=== PATIENT | male | born 1940 | race Caucasian/White ===

== ENCOUNTER 2016-03-15 08:00 | Outpatient (CLI) | payer MEDICARE | END 2016-03-15 08:01 | disposition home or self-care (01) | DX: I48.91 Unspecified atrial fibrillation (principal) ==

== ENCOUNTER 2016-03-29 08:00 | Outpatient (CLI) | payer MEDICARE | END 2016-03-29 08:01 | disposition home or self-care (01) | DX: I48.91 Unspecified atrial fibrillation (principal) ==

== ENCOUNTER 2016-05-01 13:02 | Outpatient (CLI) | payer MEDICARE | END 2016-05-01 13:03 | disposition home or self-care (01) | DX: I48.91 Unspecified atrial fibrillation (principal) ==

== ENCOUNTER 2016-05-07 | Outpatient (CLI) | payer MEDICARE | END 2016-05-07 10:30 | disposition home or self-care (01) | DX: I48.91 Unspecified atrial fibrillation (principal) ==

== ENCOUNTER 2016-05-21 19:21 | Emergency (ER) | payer MEDICARE ==
[2016-05-21] MEDS ORDERED: OXYMETAZOLINE NASAL SPRAY NAS STA (20:14)
[2016-05-21] MEDS ORDERED: ALBUTEROL NEB 2.5 MG/3 ML INH STA (20:14)
[2016-05-21] MEDS ORDERED: guaiFENesin/CODEINE 5 ML UDC PO STA (20:14)
[2016-05-21] MEDS ORDERED: guaiFENesin/CODEINE 5 ML UDC ONE (20:16)
[2016-05-21] MEDS ORDERED: OXYMETAZOLINE NASAL SPRAY NAS ONE (20:16)
[2016-05-21] MEDS ORDERED: ALBUTEROL NEB 2.5 MG/3 ML INH ONE (20:25)
[2016-05-21] MEDS ORDERED: levoFLOXacin 250 MG TABLET PO STA (20:44)
[2016-05-21] MEDS ORDERED: levoFLOXacin 250 MG TABLET PO ONE (20:45)
== END 2016-05-21 21:09 | disposition home or self-care (01) ==
DX: J18.9 Pneumonia, unspecified organism (principal); I48.91 Unspecified atrial fibrillation; Z79.01 Long term (current) use of anticoagulants; I10 Essential (primary) hypertension; E78.00 Pure hypercholesterolemia, unspecified; Z86.73 Personal history of transient ischemic attack (TIA), and cerebral infarction without residual deficits; Z85.46 Personal history of malignant neoplasm of prostate; K21.9 Gastro-esophageal reflux disease without esophagitis
CPT/HCPCS: 36415; 71020; 85025; 85610; 94640; 99283; 99284; A9270; J7613

== ENCOUNTER 2016-05-28 08:00 | Outpatient (CLI) | payer MEDICARE | END 2016-05-28 08:01 | disposition home or self-care (01) | DX: I48.91 Unspecified atrial fibrillation (principal) ==

== ENCOUNTER 2016-07-02 11:46 | Outpatient (CLI) | payer MEDICARE | END 2016-07-02 11:47 | DX: I48.91 Unspecified atrial fibrillation (principal) ==

== ENCOUNTER 2016-07-08 13:27 | Outpatient (CLI) | payer MEDICARE | END 2016-07-08 23:59 | disposition home or self-care (01) | DX: I48.91 Unspecified atrial fibrillation (principal) ==

== ENCOUNTER 2016-07-22 08:00 | Outpatient (CLI) | payer MEDICARE | END 2016-07-22 08:01 | disposition home or self-care (01) | LOC: LAB.N 08:00 | PROVIDERS: ATTEND Nurse Practitioner Gerontology | DX: I48.91 Unspecified atrial fibrillation (principal) | CPT/HCPCS: 85610 ==

== ENCOUNTER 2016-07-30 08:16 | Outpatient (CLI) | payer MEDICARE | END 2016-07-30 08:17 | disposition home or self-care (01) | LOC: LAB.N 08:16 | PROVIDERS: ATTEND Nurse Practitioner Gerontology | DX: I48.91 Unspecified atrial fibrillation (principal) | CPT/HCPCS: 85610 ==

== ENCOUNTER 2016-08-01 16:25 | Outpatient (CLI) | payer MEDICARE ==
--- NOTE | 2016-08-03 13:43 | XRAY Report ---
EXAM: CHEST RADIOGRAPHY EXAM DATE: 08/01/2016 04:39 PM. CLINICAL HISTORY: Chronic cough. COMPARISON: 05/21/2016. TECHNIQUE: 2 views. FINDINGS: Lungs/Pleura: Mild improved aeration of the right middle lobe. Persistent right basilar opacity alvina tible with infiltrate. Mediastinum: Heart and mediastinal contours are unremarkable. Other: None. IMPRESSION: Improved aeration of right middle lobe, with persistent right basilar infiltrate. [facility] Referring Provider Line: [phone] SITE ID: [id number]
== END 2016-08-01 16:26 | disposition home or self-care (01) ==
LOC: DI.N 16:25
PROVIDERS: ATTEND Nurse Practitioner Gerontology
DX: R91.8 Other nonspecific abnormal finding of lung field (principal)
CPT/HCPCS: 71020

== ENCOUNTER 2016-08-19 14:45 | Outpatient (CLI) | payer MEDICARE | END 2016-08-19 15:00 | disposition home or self-care (01) | LOC: RT.N 14:45 | PROVIDERS: ATTEND Nurse Practitioner Gerontology | DX: I50.9 Heart failure, unspecified (principal) | CPT/HCPCS: 93005 ==

== ENCOUNTER 2016-08-24 07:28 | Inpatient (IN) | payer MEDICARE ==
[2016-08-24 08:10] LABS: BASOPHILS # (AUTO) 0.1 10^3/uL (0.0-0.1); BASOPHILS % (AUTO) 1.4 %; EOSINOPHILS # (AUTO) 0.1 10^3/uL (0.0-0.7); EOSINOPHILS % (AUTO) 1.1 %; HCT - HEMATOCRIT 40.9 % (42.0-52.0); HGB - HEMOGLOBIN 13.5 g/dL (14.0-18.0); LYMPHOCYTES # (AUTO) 0.8 10^3/uL (1.5-3.5); LYMPHOCYTES % (AUTO) 12.8 %; MEAN CORPUSCULAR HEMOGLOBIN 28.8 pg (27.0-31.0); MEAN CORPUSCULAR VOLUME 87.3 fL (80.0-94.0); MEAN PLATELET VOLUME 10.2 fL (7.4-11.4); MONOCYTES # (AUTO) 0.4 10^3/uL (0.0-1.0); MONOCYTES % (AUTO) 7.4 %; NEUTROPHILS # (AUTO) 4.5 10^3/uL (1.5-6.6); NEUTROPHILS % (AUTO) 77.3 %; RED BLOOD COUNT 4.69 10^6/uL (4.70-6.10); RED CELL DISTRIBUTION WIDTH 14.1 % (12.0-15.0); UNCORRECTED WHITE BLOOD COUNT 5.9 x10^3/uL; WHITE BLOOD COUNT 5.9 x10^3/uL (4.8-10.8)
[2016-08-24 08:13] LABS: CALCIUM 8.8 mg/dL (8.5-10.3); CREATININE 1.1 mg/dL (0.6-1.2); POTASSIUM 3.7 mmol/L (3.5-5.0)
[2016-08-24 08:14] LABS: INR 2.1 (0.8-1.2); PT - PROTHROMBIN TIME 23.3 secs (9.9-12.6)
--- NOTE | 2016-08-24 08:19 | XRAY Preliminary Report ---
Exam: XR Chest 1 View IMPRESSION: Interval worsening cardiomegaly and worsening congestive heart failure. [facility] SITE ID: [id number]
--- NOTE | 2016-08-24 08:21 | XRAY Report ---
EXAM: CHEST RADIOGRAPHY EXAM DATE: 08/24/2016 08:05 AM. CLINICAL HISTORY: SOB COMPARISON: 08/01/2016. TECHNIQUE: 1 view. FINDINGS: There is mild to moderate cardiomegaly with bilateral diffuse interstitial thickening, perihilar opac ity and bibasilar patchy pulmonary opacities, greater in the right lower lobe; these findings are mod erately increased since exam. Bilateral minimal to small pleural effusions, greater in the right ches t also noted. There is no pneumothorax. IMPRESSION: Interval worsening cardiomegaly and worsening congestive heart failure. [facility] Referring Provider Line: [phone] SITE ID: [id number]
[2016-08-24 08:30] LABS: PLATELET MORPHOLOGY RARE GIANT PLATELETS (NORMAL)
--- NOTE | 2016-08-24 08:30 | ED Physician Documentation ---
History of Present Illness - Stated complaint Stated Complaint: SOA/CONGESTION - Chief complaint Chief Complaint: Resp - Additonal information Additional information: hx from pt 75 male hx a fib had pna in May he has never recovered he has had soa rodríguez with exertion and sometimes cp with exertion relieved by rest as well stats he has insomnia but when further questioned he has trouble sleeping 2/2 feeling soa when supine very weak recently still coughing subj fevers no leg swelling last INR 1.7 no bloody black BM saw PMD and was referred to cardiology but does not have an appt scheduled yet - his network developer is a Tomy Womack Review of Systems Constitutional: reports: Fever, Fatigue. denies: Chills Ears: denies: Ear pain Throat: denies: Sore throat Cardiac: reports: Chest pain / pressure. denies: Palpitations Respiratory: reports: Dyspnea, Cough GI: denies: Abdominal Pain, Nausea, Vomiting, Diarrhea, Bloody / black stool Neurologic: reports: Generalized weakness Endocrine: reports: Easy bruising / bleeding Immunocompromised: denies: Immunocompromised PD PAST MEDICAL HISTORY - Past Medical History Past Medical History: Yes Cardiovascular: Hypertension, High cholesterol, Atrial flutter Neuro: CVA GI: GERD - Past Surgical History Past Surgical History: Yes HEENT: Tonsil/Adenoidectomy - Present Medications Home Medications: Ambulatory Orders Medication Instructions Recorded Confirmed Atorvastatin Calcium 40 mg PO QPM 05/21/16 08/24/16 Carvedilol [Coreg] 6.25 mg BID 05/21/16 08/24/16 Omeprazole 20 mg PO QDAC 05/21/16 08/24/16 Warfarin [Coumadin] 5 mg PO SUTUWETHSA@1400 05/21/16 08/24/16 Albuterol Sulf [Ventolin Hfa 1 - 2 puffs INH Q4HR PRN 08/24/16 08/24/16 Inhaler] Warfarin [Coumadin] 2.5 mg PO MOFR@1400 08/24/16 08/24/16 - Allergies Allergies/Adverse Reactions: Allergies Allergy/AdvReac Type Severity Reaction Status Date / Time No Known Drug Allergies Allergy Verified 05/21/16 19:29 - Social History Does the pt smoke?: No Smoking Status: Never smoker Does the pt have substance abuse?: No - Immunizations Immunizations are current?: No - POLST Patient has POLST: No PD ED PE NORMAL - Vitals Vital signs reviewed: Yes - General General: Alert and oriented X 3 - HEENT HEENT: PERRL - Neck Neck: Supple, no meningeal sign - Cardiac Cardiac: RRR (monitor shows rate controlled afib) - Respiratory Respiratory: No respiratory distress, Other (basilar rales) - Abdomen Abdomen: Soft, Non tender - Derm Derm: Normal color - Extremities Extremities: No edema, No calf tenderness / cord - Neuro Neuro: Alert and oriented X 3 - Psych Psych: Normal mood Results - Vitals Vitals: Vital Signs - 24 hr 08/24/16 08/24/16 08/24/16 07:32 08:30 09:46 Temperature 35.1 C L Heart Rate 92 82 89 Respiratory 26 H 28 H 26 H Rate Blood Pressure 138/80 H 126/80 136/103 H O2 Saturation 96 96 94 Oxygen O2 Source Room air - EKG (time done) 0750 Rate: Rate (enter#) Rhythm: Atrial fibrillation Intervals: Wide QRS (IVCD probable partial LBBB) Compare to prior EKG: Unchanged from prior EKG (very similar to EKG 05/07/16) - Labs Labs: Laboratory Tests 08/24/16 08/24/16 08/24/16 07:50 07:50 07:50 WBC 5.9 RBC 4.69 L Hgb 13.5 L Hct 40.9 L MCV 87.3 MCH 28.8 MCHC 33.0 RDW 14.1 Plt Count 205 MPV 10.2 Neut # 4.5 Lymph # 0.8 L [place] # 0.4 Eos # 0.1 Baso # 0.1 Absolute Nucleated RBC 0.00 Nucleated RBCs 0.0 Manual Slide Review Indicated Platelet Morphology RARE GIANT PLATELETS PT INR Sodium 138 Potassium 3.7 Chloride 105 Carbon Dioxide 22 Anion Gap 11.0 BUN 31 H Creatinine 1.1 Estimated GFR (MDRD) 66 L Glucose 192 H Calcium 8.8 Troponin I < 0.04 B-Natriuretic Peptide Urine Color Urine Clarity Urine pH Ur Specific [place] Urine Protein Urine Glucose (UA) Urine Ketones Urine Occult Blood Urine Nitrite Urine Bilirubin Urine Urobilinogen Ur Leukocyte Esterase Urine RBC Urine WBC Ur Squamous Epith Cells Urine Bacteria Urine Casts Urine Mucus Ur Microscopic Review Urine Culture Comments 08/24/16 08/24/16 08/24/16 07:50 07:50 09:50 WBC RBC Hgb Hct MCV MCH MCHC RDW Plt Count MPV Neut # Lymph # [place] # Eos # Baso # Absolute Nucleated RBC Nucleated RBCs Manual Slide Review Platelet Morphology PT 23.3 H INR 2.1 H Sodium Potassium Chloride Carbon Dioxide Anion Gap BUN Creatinine Estimated GFR (MDRD) Glucose Calcium Troponin I B-Natriuretic Peptide 1026 H Urine Color YELLOW Urine Clarity HAZY Urine pH 6.0 Ur Specific [place] 1.025 Urine Protein 100 H Urine Glucose (UA) 100 H Urine Ketones NEGATIVE Urine Occult Blood NEGATIVE Urine Nitrite NEGATIVE Urine Bilirubin NEGATIVE Urine Urobilinogen 0.2 (NORMAL) Ur Leukocyte Esterase NEGATIVE Urine RBC 0-5 Urine WBC 0-3 Ur Squamous Epith Cells NONE SEEN Urine Bacteria None Seen Urine Casts 0-2 Cellular Casts Urine Mucus Few Strands Ur Microscopic Review INDICATED Urine Culture Comments NOT INDICATED - Rads (name of study) CXR Radiology: See rad report (worsening cardiomegaly and CHF) PD MEDICAL DECISION MAKING - ED course ED course: gradually worsening but now severe CHF - sats to low 80s at time - placed on o2 - will admit for diuresis, SHARLENE, echo also by hx some subacute anginal sx X several months - will need cardio eval stress test - perhaps [facility] hospitalist can coordinate with pts cardio to expedite Departure - Departure Disposition: 66 [facility] DC/Xfer Clinical Impression: Hypoxia Congestive heart failure Qualifiers: Congestive heart failure type: unspecified congestive heart failure type Congestive heart failure chronicity: acute Qualified Code(s): I50.9 - Heart failure, unspecified Condition: Fair Discharge Date/Time: 08/24/16 10:51
[2016-08-24] MEDS ORDERED: FUROSEMIDE 40 MG/4 ML VIAL IVP STA (09:52)
[2016-08-24] MEDS ORDERED: NITROGLYCERIN 2% PASTE TOP STA (09:52)
[2016-08-24] MEDS ORDERED: FUROSEMIDE 40 MG/4 ML VIAL ONE (10:08)
[2016-08-24] MEDS ORDERED: NITROGLYCERIN 2% PASTE TOP ONE (10:09)
[2016-08-24] MEDS ORDERED: ACETAMINOPHEN 325 MG TABLET PO PRN ×2 (10:12→11:01)
[2016-08-24] MEDS ORDERED: ONDANSETRON 4 MG/2 ML VIAL IVP PRN ×2 (10:12→11:01)
[2016-08-24] MEDS ORDERED: PROCHLORPERAZINE 10 MG/2 ML VIAL IVP PRN ×2 (10:12→11:01)
[2016-08-24] MEDS ORDERED: SODIUM CHLORIDE FLUSH 0.9% 10 ML SYRINGE IVP PRN ×2 (10:12→11:01)
[2016-08-24] MEDS ORDERED: ZOLPIDEM 5 MG TABLET PO PRN (10:12)
[2016-08-24] MEDS ORDERED: MORPHINE 2 MG/ML SYRINGE IVP PRN ×2 (10:12→11:01)
[2016-08-24] MEDS ORDERED: oxyCODONE 5 MG TABLET PO PRN ×2 (10:12→11:01)
[2016-08-24] MEDS ORDERED: CARVEDILOL 6.25 MG PO SCH (10:15)
[2016-08-24 10:21] LABS: BILIRUBIN,URINE NEGATIVE (NEGATIVE)
[2016-08-24 10:36] LABS: UA w/ MICROSCOPIC CHARGE YES
[2016-08-24 10:42] LABS: WBC,URINE 0-3 /HPF (0-3)
[2016-08-24 10:43] LABS: UR CULTURE IF IND NOT INDICATED
[2016-08-24] MEDS ORDERED: POTASSIUM CHLORIDE 20 MEQ TABLET PO SCH (11:00)
[2016-08-24] MEDS ORDERED: WARFARIN 5 MG TABLET PO SCH (11:00)
--- NOTE | 2016-08-24 11:10 | HISTORY & PHYSICAL EXAMINATION ---
Chief Complaint - Chief Complaint Chief Complaint: Shortness of Breath History of Present Illness - Admitted From Admitted From:: emergency department - History Obtained From Records Reviewed: yes History obtained from: patient Exam Limitations: none - History of Present Illness HPI Comment/Other: Patient is a 75-year-old gentleman with a past medical history significant for atrial fibrillation on Coumadin, prostate cancer with history of seed implant, hypertension and hyperlipidemia who presented to the emergency department with a chief complaint of shortness of air. The patient states that symptoms have been going on for the past several months. He states that originally in May of 2016 he was having shortness of air and cough at that time he was treated for a pneumonia he completed 2 courses of antibiotics and states that although he had some improvement he never was able to get back to his baseline. He states that since then he's been having increasingly worsening shortness of air. He states that over the past month his exercise tolerance has decreased rapidly. He states that now just going 10-15 feet and become short of air and fatigue and has to sit down and rest. He also states that he's had orthopnea and cannot sleep at night. The patient denies any increased lower extremity swelling. He does state that he's had decreased appetite, he often feels cold and he's been feeling dizzy. The patient denies having had any chest pain. He also denies having had any recent palpitations. On presentation to the emergency department the patient was afebrile but was quite tachypneic and in apparent respiratory distress. The patient was not hypoxic but was using accessory muscles of breathing. The patient's chest x-ray revealed cardiomegaly and worsening congestive heart failure. The patient's lab work revealed a normal troponin but an elevated BNP of 1026. Patient's creatinine was 1.1 and CBC was normal. Patient's INR was 2.1, his glucose was elevated at 196 and he did have proteins and glucose in his urine. The patient was admitted to the medical mcn[facility] for new onset CHF with decompensation. The patient was given a dose of IV Lasix in the emergency department and given a nitroglycerin patch. Review of Systems - Constitutional Constitutional: reports: Fatigue, Chills, Weakness, Poor appetite, Weight gain. denies: Fever, Malaise, Diaphoresis, Night sweats, Weight loss - Eyes Eyes: denies: Pain, Irritation, Amaurosis, Blurred vision, Spots in vision, Field loss, Vision loss, Dipolpia - Ears, Nose & Throat Ears, Nose & Throat: reports: Dentures. denies: Ear pain, Hearing loss, Hearing aids, Tinnitus, Vertigo, Nasal pain, Nasal discharge, Nosebleeds, Nasal obstruction, Nasal congestion, Sore throat, Hoarseness, Mouth lesions - Cardiovascular Cariovascular: reports: Irregular heart rate, Lightheadedness, Exertional dyspnea, Decr. exercise tolerance, Orthopnea. denies: Palpitations, Chest pain , Edema, Syncope - Respiratory Respiratory: reports: Cough, Sputum production, Orthopnea, SOB at rest, SOB with exertion. denies: Wheezing, Snoring, Hemoptysis, Pleuritic pain - Gastrointestinal Gastrointestinal: reports: Poor appetite. denies: Abdominal pain, Abdominal distention, Constipation, Diarrhea, Change in bowel habits, Black stools, Bloody stools, Nausea, Vomiting, Bile emesis, [place] blood emesis, Coffee grounds emesis, Bloating - Genitourinary Genitourinary: denies: Dysuria, Frequency, Urgency, Hematuria, Incontinence - Musculoskeletal Musculoskeletal: denies: Muscle pain, Back pain, Muscle aches, Stiffness, Limited range of motion, Muscle weakness - Integumentary Integumentary: denies: Rash, Pruritis, Lesions, Dryness - Neurological Neurological: reports: General weakness. denies: Focal weakness, Headache, Dizziness, Numbness, Abnormal gait, Seizures - Psychiatric Psychiatric: denies: Depression, Anxiety, Suicidal, Delusions - Endocrine Endocrine: denies: Polyuria, Polydypsia, Polyphagia, Intolerance to cold - Hematologic/Lymphatic Hematologic/Lymphatic: denies: Anemia, Bruising, Petechiae, Lymphadenopathy History - Past Medical History Cardiovascular: reports: Congestive heart failure, Hypertension, High cholesterol, Atrial fibrillation GI: reports: GERD : reports: Other (History of Prostate Cancer s/p seed implants) HEENT: reports: None Psych: reports: None Musculoskeletal: reports: None Derm: reports: None MRSA Hx?: No - Past Surgical History HEENT: reports: Tonsil/Adenoidectomy - Family & Social History Family History: Mother: (Dad was healthy), CAD, Father: , Sister: Alive and Well (2 kids), Other family: Alive and Well Living arrangement: At home Living Situation: With family Social History Notes: Patient is originally from [facility] he moved to [place] about 35 years ago. He states he took 10 years for his family to get emigration and then he decided to move up to [facility] because he thought it would be a great place to raise his kids. The patient has 2 children he is . 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 He does speak Romanian fluently. He has never smoked he does not drink alcohol he denies any illicit drug use - Substance History Use: Uses substance without health or social issues: NONE Abuse: Recurrent use of substance despite neg consequences: NONE Dependence: Experiences withdrawal or developed tolerances: NONE - POLST Patient has POLST: No POLST Status: Full Code Meds/Allgy - Home Medications Home Medications: Ambulatory Orders Medication Instructions Recorded Confirmed Atorvastatin Calcium 40 mg PO DAILY 05/21/16 08/24/16 Carvedilol [Coreg] 6.25 mg BID 05/21/16 08/24/16 Omeprazole Daily 40 mg PO DAILY 05/21/16 08/24/16 Warfarin [Coumadin] 5 mg PO DAILY 05/21/16 08/24/16 Albuterol Sulf [Ventolin Hfa 1 - 2 puffs INH Q4HR PRN 08/24/16 08/24/16 Inhaler] Warfarin [Coumadin] 2.5 mg PO MOFR@1400 08/24/16 08/24/16 - Allergies Allergies/Adverse Reactions: Allergies Allergy/AdvReac Type Severity Reaction Status Date / Time No Known Drug Allergies Allergy Verified 05/21/16 19:29 Exam - Vital Signs Reviewed Vital Signs: Yes Vital Signs: Vital Signs x48h Pulse Ox 08/24/16 10:13 84 L - Physical Exam General Appearance: positive: Alert, Moderate distress (Conversational dyspnea, using accessory muscles of breath, tacypneic) Eyes Bilateral: positive: Normal inspection, PERRL, EOMI, No lid inflammation, Conjunctivae nml, No scleral icterus ENT: positive: ENT inspection nml, Pharynx nml, No signs of dehydration. negative: Purulent nasal drainage, Pharyngeal erythema, Oral lesions Neck: positive: Nml inspection, Thyroid nml, Trachea midline, Other (Elevated JVD). negative: Thyromegaly, Lymphadenopathy (R), Lymphadenopathy (L) Respiratory: positive: Chest non-tender, No respiratory distress, Rales ( crackles up 2/3s of the lung) Cardiovascular: positive: No murmur, No gallop, Irregularly irregular, Tachycardia Peripheral Pulses: positive: 2+ Abdomen: positive: Non-tender, No organomegaly, Nml bowel sounds, No distention. negative: Guarding, Rebound, Hepatomegaly Back: positive: Nml inspection. negative: CVA tenderness (R), CVA tenderness (L ) Skin: positive: Color nml, No rash, Warm Extremities: positive: Non-tender, Full ROM, Nml appearance, Pedal edema (1+) Neurologic/Psychiatric: positive: Oriented x3, CN's nml (2-12), Motor nml, Sensation nml, Mood/affect nml Conclusion/Plan - Problem List (1) Congestive heart failure Conclusion/Plan: Patient presented with shortness of air for 3 months with significantly worsening symptoms over the last month. Increasing exertional dyspnea, fatigue, orthopnea and decreased exercise tolerance. On presentation patient was tachypneic, was in respiratory distress but not hypoxic. Chest x-ray revealed cardiomegaly and CHF, BNP was greater than 1000 and patient had JVD and crackles on examination. Patient has no previous diagnosis of CHF and has no previous echo. EKG showed atrial fibrillation with nonspecific T-wave abnormalities and troponin was negative. Patient has classic presentation of CHF Plan Echo Lasix IV 40 mg BID and potassium supplementation Strict I/O Daily Weights 2L fluid restriction [address] on Tele Continue coreg will consider lisinopril and aldactone depending on EF Patient will need cardiology follow up for cath as outpatient Qualifiers: Congestive heart failure type: unspecified congestive heart failure type Congestive heart failure chronicity: acute Qualified Code(s): I50.9 - Heart failure, unspecified (2) Atrial fibrillation Conclusion/Plan: Chronic on coumadin with therapeutic INR On CoReg for rate control Patient rate controlled at rest but tachy with any exertion Place on tele Monitor HR and titrate coreg dose Monitor INR Qualifiers: Atrial fibrillation type: chronic Qualified Code(s): I48.2 - Chronic atrial fibrillation (3) Hyperglycemia Conclusion/Plan: Patients BG elevated at 192 on presentation No history of diabetes UA with glucose and protein Patient likely has diabetes Will check A1C and treat accordingly (4) Hypertension Conclusion/Plan: BP stable on presentation Continue coreg and monitor BP for now Qualifiers: Hypertension type: essential hypertension Qualified Code(s): I10 - Essential (primary) hypertension (5) Hyperlipidemia Conclusion/Plan: Continue lipitor Stable - Lab Results Lab results reviewed: Yes Fish Bones: 08/24/16 07:50 08/24/16 07:50 - Diagnostic Imaging Results Diagnostic Imaging Results: positive: Final report reviewed - EKG Results EKG Interpreted Independently: Yes Issues/Core Measures - Anticipated LOS Anticipated Stay Length: 2 or more midnights - DVT/VTE - Prophylaxis VTE/DVT Device ordered at admit?: Yes
[2016-08-24] MEDS: POTASSIUM CHLORIDE 20 MEQ TABLET PO SCH (12:59)
[2016-08-24] MEDS: CARVEDILOL 3.125 MG TABLET PO SCH ×2 (12:59→21:07)
[2016-08-24] MEDS ORDERED: FUROSEMIDE 40 MG/4 ML VIAL IVP SCH (14:00)
[2016-08-24] MEDS ORDERED: SODIUM CHLORIDE FLUSH 0.9% 10 ML SYRINGE IVP SCH (14:00)
[2016-08-24] MEDS: SPIRONOLACTONE 25 MG TABLET PO SCH (14:01)
[2016-08-24] MEDS: LISINOPRIL 5 MG TABLET PO SCH (14:01)
[2016-08-24] MEDS: WARFARIN 5 MG TABLET PO SCH (14:02)
[2016-08-24] MEDS: FUROSEMIDE 40 MG/4 ML VIAL IVP SCH (14:02)
[2016-08-24] MEDS: SODIUM CHLORIDE FLUSH 0.9% 10 ML SYRINGE IVP SCH ×2 (14:02→21:07)
[2016-08-24] MEDS: ZOLPIDEM 5 MG TABLET PO PRN (21:17)
[2016-08-25] MEDS: PANTOPRAZOLE 40 MG TABLET PO SCH (06:26)
[2016-08-25] MEDS: SODIUM CHLORIDE FLUSH 0.9% 10 ML SYRINGE IVP SCH ×3 (06:26→21:17)
[2016-08-25] MEDS: FUROSEMIDE 40 MG/4 ML VIAL IVP SCH ×2 (06:26→14:23)
[2016-08-25 06:51] LABS: BASOPHILS % (AUTO) 0.6 %; EOSINOPHILS # (AUTO) 0.2 10^3/uL (0.0-0.7); EOSINOPHILS % (AUTO) 3.1 %; HCT - HEMATOCRIT 41.4 % (42.0-52.0); HGB - HEMOGLOBIN 13.8 g/dL (14.0-18.0); LYMPHOCYTES # (AUTO) 1.2 10^3/uL (1.5-3.5); LYMPHOCYTES % (AUTO) 18.7 %; MEAN CORPUSCULAR HGB CONC 33.2 g/dL (32.0-36.0); MEAN CORPUSCULAR VOLUME 87.2 fL (80.0-94.0); MEAN PLATELET VOLUME 9.8 fL (7.4-11.4); MONOCYTES # (AUTO) 0.8 10^3/uL (0.0-1.0); NEUTROPHILS % (AUTO) 64.6 %; NUCLEATED RED BLOOD CELLS AUTO 0.1 /100WBC; RED BLOOD COUNT 4.75 10^6/uL (4.70-6.10); RED CELL DISTRIBUTION WIDTH 13.5 % (12.0-15.0); UNCORRECTED WHITE BLOOD COUNT 6.2 x10^3/uL; WHITE BLOOD COUNT 6.2 x10^3/uL (4.8-10.8)
[2016-08-25 07:00] LABS: ALBUMIN/GLOBULIN RATIO 1.2 (1.0-2.2); BILIRUBIN,TOTAL 1.2 mg/dL (0.2-1.0); BUN - BLOOD UREA NITROGEN 24 mg/dL (6-20); CALCIUM 8.8 mg/dL (8.5-10.3); CARBON DIOXIDE - CO2 25 mmol/L (21-32); CHLORIDE 102 mmol/L (101-111); CREATININE 0.8 mg/dL (0.6-1.2); GFR - MDRD 95 (>89); GLUCOSE 95 mg/dL (70-100); MAGNESIUM 1.6 mg/dL (1.7-2.8); PHOSPHORUS 3.1 mg/dL (2.5-4.6); POTASSIUM 3.6 mmol/L (3.5-5.0); SODIUM 137 mmol/L (135-145); TOTAL PROTEIN 6.2 g/dL (6.7-8.2)
[2016-08-25] MEDS ORDERED: PANTOPRAZOLE 40 MG TABLET PO SCH (07:00)
[2016-08-25 07:46] LABS: HEMOGLOBIN A1C 0.55 g/dL
[2016-08-25] MEDS ORDERED: POLYETHYLENE GLYCOL 3350 17 GM PACKET PO SCH (09:00)
[2016-08-25] MEDS ORDERED: ATORVASTATIN 40 MG TABLET PO SCH ×2 (09:00→21:00)
[2016-08-25] MEDS: SPIRONOLACTONE 25 MG TABLET PO SCH (10:05)
[2016-08-25] MEDS: LISINOPRIL 5 MG TABLET PO SCH (10:06)
[2016-08-25] MEDS: CARVEDILOL 3.125 MG TABLET PO SCH (10:06)
[2016-08-25] MEDS: MAGNESIUM OXIDE 400 MG TABLET PO SCH (10:06)
[2016-08-25] MEDS: POLYETHYLENE GLYCOL 3350 17 GM PACKET PO SCH (10:06)
[2016-08-25] MEDS: POTASSIUM CHLORIDE 20 MEQ TABLET PO SCH (10:06)
[2016-08-25] MEDS: WARFARIN 5 MG TABLET PO SCH (14:23)
--- NOTE | 2016-08-25 18:03 | PROVIDER PROGRESS NOTE ---
Assessment/Plan - Problem List (1) Congestive heart failure Qualifiers: Congestive heart failure type: unspecified congestive heart failure type Congestive heart failure chronicity: acute Qualified Code(s): I50.9 - Heart failure, unspecified Assessment/Plan: Patient presented with shortness of air for 3 months with significantly worsening symptoms over the last month. Increasing exertional dyspnea, fatigue, orthopnea and decreased exercise tolerance. On presentation patient was tachypneic, was in respiratory distress but not hypoxic. Chest x-ray revealed cardiomegaly and CHF, BNP was greater than 1000 and patient had JVD and crackles on examination. Patient has no previous diagnosis of CHF and has no previous echo. EKG showed atrial fibrillation with nonspecific T-wave abnormalities and troponin was negative. Patient has classic presentation of CHF Echo shows EF of less than 20% with global hypokinesis suggestive of a NICM but patient will need cardiac evaluation as outpatient for ischemic workup Lasix IV 40 mg BID and potassium supplementation Negative 1.5 L since admission with 2Kg decrease in weight BNP improved from 1026 to 681 2L fluid restriction 2 gram Na restriction On Tele On Coreg, lisinopril and aldactone Improving today will likely need 1-2 more days of diuresis with IV lasix then transition to PO lasix CHF teaching Qualifiers: Congestive heart failure type: unspecified congestive heart failure type Congestive heart failure chronicity: acute Qualified Code(s): I50.9 - Heart failure, unspecified (2) Atrial fibrillation Conclusion/Plan: Chronic on coumadin with therapeutic INR On CoReg for rate control On tele INR therapuetic at 2.1 Stable Qualifiers: Atrial fibrillation type: chronic Qualified Code(s): I48.2 - Chronic atrial fibrillation (3) Hyperglycemia Conclusion/Plan: Patients BG elevated at 192 on presentation No history of diabetes UA with glucose and protein hbA1C on 5.7 so does not have diabetes BG better today (4) Hypertension Conclusion/Plan: BP stable on presentation Started on lisinopril and aldactone and lasix in addition to coreg Qualifiers: Hypertension type: essential hypertension Qualified Code(s): I10 - Essential (primary) hypertension (5) Hyperlipidemia Conclusion/Plan: Continue lipitor Stable - Current Meds Current Meds: Current Medications Generic Name Dose Route Start Last Admin Trade Name Freq PRN Reason Stop Dose Admin Carvedilol 6.25 mg 08/24/16 12:30 08/25/16 10:06 Coreg PO 6.25 mg BID DON Administration Furosemide 40 mg 08/24/16 14:00 08/25/16 14:23 Lasix Inj 40 Mg Vial IVP 40 mg BIDDIURETIC DON Administration Lisinopril 5 mg 08/24/16 13:00 08/25/16 10:06 Zestril PO Not Given DAILY DON Magnesium Oxide 400 mg 08/25/16 09:00 08/25/16 10:06 Mag Ox PO 400 mg DAILYWM DON Administration Pantoprazole Sodium 40 mg 08/25/16 07:00 08/25/16 06:26 Protonix PO 40 mg QDAC DON Administration Polyethylene Glycol 17 gm 08/25/16 09:00 08/25/16 10:06 Miralax PO Not Given DAILY DON Potassium Chloride 40 meq 08/24/16 12:00 08/25/16 10:06 K-Dur PO 40 meq DAILYWM DON Administration Sodium Chloride 10 ml 08/24/16 14:00 08/25/16 14:23 Normal Saline Flush 0.9% IVP 10 ml Q8HR DON Administration Spironolactone 25 mg 08/24/16 13:00 08/25/16 10:05 Aldactone PO 25 mg DAILY DON Administration Warfarin Sodium 5 mg 08/24/16 14:00 08/25/16 14:23 Coumadin PO 5 mg QDWARFARIN DON Administration Zolpidem Tartrate 5 mg 08/24/16 11:01 08/24/16 21:17 Ambien PO 5 mg QPM PRN Administration Insomnia - Lab Result Lab results reviewed: Yes Fish Bone Diagrams: 08/25/16 06:22 08/25/16 06:22 - EKG Results EKG Interpreted Independently: Yes - Diagnostic Imaging Results Diagnostic Imaging Results: positive: Final report reviewed - Additional Planning Condition/Complexity: Guarded My Orders: My Active Orders 08/25/16 07:00 Pantoprazole [Protonix] 40 mg PO QDAC 08/25/16 09:00 Magnesium Oxide [Mag Ox] 400 mg PO DAILYWM Polyethylene Glycol 3350 [Miralax] 17 gm PO DAILY 08/25/16 21:00 Atorvastatin [Lipitor] 40 mg PO QPM 08/26/16 05:00 BNP - B-NATRIURETIC PEPTIDE [IAI] DAILYLAB CBC - COMP BLD CT W/AUTO DIFF [HEME] DAILYLAB CMP, RFLX TO IONIZED CA IF [CHEM] DAILYLAB MAGNESIUM [CHEM] DAILYLAB PHOSPHORUS [CHEM] DAILYLAB 08/27/16 05:00 BNP - B-NATRIURETIC PEPTIDE [IAI] DAILYLAB CBC - COMP BLD CT W/AUTO DIFF [HEME] DAILYLAB CMP, RFLX TO IONIZED CA IF [CHEM] DAILYLAB MAGNESIUM [CHEM] DAILYLAB PHOSPHORUS [CHEM] DAILYLAB 08/28/16 05:00 BNP - B-NATRIURETIC PEPTIDE [IAI] DAILYLAB CBC - COMP BLD CT W/AUTO DIFF [HEME] DAILYLAB CMP, RFLX TO IONIZED CA IF [CHEM] DAILYLAB MAGNESIUM [CHEM] DAILYLAB PHOSPHORUS [CHEM] DAILYLAB 08/29/16 05:00 BNP - B-NATRIURETIC PEPTIDE [IAI] DAILYLAB CBC - COMP BLD CT W/AUTO DIFF [HEME] DAILYLAB CMP, RFLX TO IONIZED CA IF [CHEM] DAILYLAB MAGNESIUM [CHEM] DAILYLAB PHOSPHORUS [CHEM] DAILYLAB Plan Discussed with:: Patient Time Spent: 31-60 minutes Subjective - Subjective Patient Reports: Feeling Better (He states before he could not walk 5 feet without having to stop. Now going to bathroom and back with minimal SOB. He states he was able to sleep for the first time in months last night as he could lie in bed and was not short of breath. NO chest pain.) Nursing Reports: No Complaints Objective Vital Signs: Vital Signs - 24 hr 08/24/16 08/25/16 08/25/16 21:00 00:40 06:05 Temperature 36.5 C 36.6 C 36.8 C Heart Rate [ 87 85 74 Brachial] Respiratory 16 18 18 Rate Blood Pressure 118/73 111/72 108/70 [Left Brachial artery] O2 Saturation 97 95 97 08/25/16 08/25/16 08/25/16 09:00 13:00 16:55 Temperature 36.4 C L 37.0 C 36.7 C Heart Rate [ 85 89 96 Brachial] Respiratory 18 19 18 Rate Blood Pressure 118/62 107/68 100/67 [Left Brachial artery] O2 Saturation 97 95 96 Oxygen O2 Source Room air Oxygen Flow Rate 2 I&O (Last 24 Hrs): Intake and Output Totals x24h 08/23/16 08/24/16 08/25/16 23:59 23:59 23:59 Intake Total 740 806 Output Total 7375 1100 Balance -1435 -294 General: Alert, Oriented x3, Cooperative, No acute distress HEENT: Atraumatic, PERRLA, EOMI, Mucous membr. moist/pink, Other Neck: Supple, No thyromegaly, +2 carotid pulse wo bruit, No LAD, Other (+JVD) Lymphatic: no adenopathy Neuro: Alert, Non Focal, CN 2-12 Grossly Intact, Oriented Times 3 Cardiovascular: Other (Irregularly, irregular, S3) Respiratory: Chest non-tender, Rales (Improved at bases) Abdomen: Normal bowel sounds, Soft, No tenderness, No hepatospenomegaly, No masses Extremities: No clubbing, No cyanosis, Normal pulses, No tenderness/swelling, Other (B/L LE edema imporved) Skin: No rashes, No breakdown - Results Results: Laboratory Results WBC 6.2 x10^3/uL (4.8-10.8) 08/25/16 06:22 RBC 4.75 10^6/uL (4.70-6.10) 08/25/16 06:22 Hgb 13.8 g/dL (14.0-18.0) L 08/25/16 06:22 Hct 41.4 % (42.0-52.0) L 08/25/16 06:22 MCV 87.2 fL (80.0-94.0) 08/25/16 06:22 MCH 29.0 pg (27.0-31.0) 08/25/16 06:22 MCHC 33.2 g/dL (32.0-36.0) 08/25/16 06:22 RDW 13.5 % (12.0-15.0) 08/25/16 06:22 Plt Count 192 10^3/uL (130-450) 08/25/16 06:22 MPV 9.8 fL (7.4-11.4) 08/25/16 06:22 Neut # 4.0 10^3/uL (1.5-6.6) 08/25/16 06:22 Lymph # 1.2 10^3/uL (1.5-3.5) L 08/25/16 06:22 [place] # 0.8 10^3/uL (0.0-1.0) 08/25/16 06:22 Eos # 0.2 10^3/uL (0.0-0.7) 08/25/16 06:22 Baso # 0.0 10^3/uL (0.0-0.1) 08/25/16 06:22 Absolute Nucleated RBC 0.01 x10^3/uL 08/25/16 06:22 Nucleated RBCs 0.1 /100WBC 08/25/16 06:22 Manual Slide Review Indicated 08/24/16 07:50 Platelet Morphology RARE GIANT PLATELETS (NORMAL) 08/24/16 07:50 PT 23.3 secs (9.9-12.6) H 08/24/16 07:50 INR 2.1 (0.8-1.2) H 08/24/16 07:50 Sodium 137 mmol/L (135-145) 08/25/16 06:22 Potassium 3.6 mmol/L (3.5-5.0) 08/25/16 06:22 Chloride 102 mmol/L (101-111) 08/25/16 06:22 Carbon Dioxide 25 mmol/L (21-32) 08/25/16 06:22 Anion Gap 10.0 (6-13) 08/25/16 06:22 BUN 24 mg/dL (6-20) H 08/25/16 06:22 Creatinine 0.8 mg/dL (0.6-1.2) 08/25/16 06:22 Estimated GFR (MDRD) 95 (>89) 08/25/16 06:22 Glucose 95 mg/dL (70-100) 08/25/16 06:22 Glycated Hemoglobin 5.7 % (4.6-6.2) 08/25/16 06:22 Estim Average Glucose 117 (70-100) H 08/25/16 06:22 Calcium 8.8 mg/dL (8.5-10.3) 08/25/16 06:22 Ionized Calcium NO 08/25/16 06:22 Phosphorus 3.1 mg/dL (2.5-4.6) 08/25/16 06:22 Magnesium 1.6 mg/dL (1.7-2.8) L 08/25/16 06:22 Total Bilirubin 1.2 mg/dL (0.2-1.0) H 08/25/16 06:22 AST 41 IU/L (10-42) 08/25/16 06:22 ALT 33 IU/L (10-60) 08/25/16 06:22 Alkaline Phosphatase 91 IU/L (42-121) 08/25/16 06:22 Troponin I < 0.04 ng/mL (<0.49) 08/24/16 07:50 B-Natriuretic Peptide 681 pg/mL (5-100) H 08/25/16 06:22 Total Protein 6.2 g/dL (6.7-8.2) L 08/25/16 06:22 Albumin 3.4 g/dL (3.2-5.5) 08/25/16 06:22 Globulin 2.8 g/dL (2.1-4.2) 08/25/16 06:22 Albumin/Globulin Ratio 1.2 (1.0-2.2) 08/25/16 06:22 Urine Color YELLOW 08/24/16 09:50 Urine Clarity HAZY (CLEAR) 08/24/16 09:50 Urine pH 6.0 PH (5.0-7.5) 08/24/16 09:50 Ur Specific [place] 1.025 (1.002-1.030) 08/24/16 09:50 Urine Protein 100 mg/dL (NEGATIVE) H 08/24/16 09:50 Urine Glucose (UA) 100 mg/dL (NEGATIVE) H 08/24/16 09:50 Urine Ketones NEGATIVE mg/dL (NEGATIVE) 08/24/16 09:50 Urine Occult Blood NEGATIVE (NEGATIVE) 08/24/16 09:50 Urine Nitrite NEGATIVE (NEGATIVE) 08/24/16 09:50 Urine Bilirubin NEGATIVE (NEGATIVE) 08/24/16 09:50 Urine Urobilinogen 0.2 (NORMAL) E.U./dL (NORMAL) 08/24/16 09:50 Ur Leukocyte Esterase NEGATIVE (NEGATIVE) 08/24/16 09:50 Urine RBC 0-5 /HPF (0-5) 08/24/16 09:50 Urine WBC 0-3 /HPF (0-3) 08/24/16 09:50 Ur Squamous Epith Cells NONE SEEN (<= Few) 08/24/16 09:50 Urine Bacteria None Seen /HPF (None Seen) 08/24/16 09:50 Urine Casts 11-25 Hyaline Casts /LPF6-10 Course Granular /LPF0-2 Cellular Casts /LPF 08/24/16 09:50 Urine Casts 11-25 Hyaline Casts /LPF6-10 Course Granular /LPF0-2 Cellular Casts /LPF 08/24/16 09:50 Urine Casts 11-25 Hyaline Casts /LPF6-10 Course Granular /LPF0-2 Cellular Casts /LPF 08/24/16 09:50 Urine Mucus Few Strands 08/24/16 09:50 Ur Microscopic Review INDICATED 08/24/16 09:50 Urine Culture Comments NOT INDICATED 08/24/16 09:50
[2016-08-25] MEDS: CARVEDILOL 12.5 MG TABLET PO SCH (21:17)
[2016-08-25] MEDS: ZOLPIDEM 5 MG TABLET PO PRN (21:17)
[2016-08-26 05:43] LABS: BASOPHILS % (AUTO) 0.6 %; EOSINOPHILS # (AUTO) 0.2 10^3/uL (0.0-0.7); EOSINOPHILS % (AUTO) 2.7 %; HCT - HEMATOCRIT 43.6 % (42.0-52.0); HGB - HEMOGLOBIN 14.4 g/dL (14.0-18.0); LYMPHOCYTES # (AUTO) 1.2 10^3/uL (1.5-3.5); LYMPHOCYTES % (AUTO) 15.4 %; MEAN CORPUSCULAR HEMOGLOBIN 28.7 pg (27.0-31.0); MEAN CORPUSCULAR HGB CONC 32.9 g/dL (32.0-36.0); MEAN CORPUSCULAR VOLUME 87.1 fL (80.0-94.0); MONOCYTES # (AUTO) 0.9 10^3/uL (0.0-1.0); NEUTROPHILS # (AUTO) 5.3 10^3/uL (1.5-6.6); NEUTROPHILS % (AUTO) 69.3 %; RED CELL DISTRIBUTION WIDTH 13.6 % (12.0-15.0); UNCORRECTED WHITE BLOOD COUNT 7.6 x10^3/uL; WHITE BLOOD COUNT 7.6 x10^3/uL (4.8-10.8)
[2016-08-26 05:58] LABS: ALBUMIN/GLOBULIN RATIO 1.1 (1.0-2.2); BUN - BLOOD UREA NITROGEN 26 mg/dL (6-20); CALCIUM 8.9 mg/dL (8.5-10.3); CARBON DIOXIDE - CO2 28 mmol/L (21-32); CHLORIDE 101 mmol/L (101-111); CREATININE 1.1 mg/dL (0.6-1.2); GFR - MDRD 66 (>89); GLUCOSE 96 mg/dL (70-100); MAGNESIUM 1.7 mg/dL (1.7-2.8); POTASSIUM 3.8 mmol/L (3.5-5.0); SODIUM 137 mmol/L (135-145); TOTAL PROTEIN 6.6 g/dL (6.7-8.2)
[2016-08-26] MEDS: PANTOPRAZOLE 40 MG TABLET PO SCH (06:05)
[2016-08-26] MEDS: SODIUM CHLORIDE FLUSH 0.9% 10 ML SYRINGE IVP SCH (06:05)
[2016-08-26] MEDS: FUROSEMIDE 40 MG/4 ML VIAL IVP SCH (06:05)
[2016-08-26 08:58] VITALS: BP 104/68
[2016-08-26] MEDS: MAGNESIUM OXIDE 400 MG TABLET PO SCH (09:04)
[2016-08-26] MEDS: CARVEDILOL 12.5 MG TABLET PO SCH (09:04)
[2016-08-26] MEDS: POTASSIUM CHLORIDE 20 MEQ TABLET PO SCH (09:04)
[2016-08-26] MEDS: LISINOPRIL 5 MG TABLET PO SCH (09:05)
[2016-08-26] MEDS: SPIRONOLACTONE 25 MG TABLET PO SCH (09:05)
[2016-08-26] MEDS: POLYETHYLENE GLYCOL 3350 17 GM PACKET PO SCH (09:05)
--- NOTE | 2016-08-26 11:32 | Discharge Plan ---
Discharge Plan Disposition: Home, Self Care Condition: Fair Prescriptions: Spironolactone [Aldactone] 25 mg PO DAILY #30 tablet Zolpidem [Ambien] 5 mg PO QPM PRN #20 tablet PRN Reason: Insomnia Carvedilol [Coreg] 12.5 mg PO BID #60 tablet Potassium Chloride [K-Dur] 40 meq PO DAILYWM #30 tablet Furosemide [Lasix] 20 mg PO DAILY PRN #30 tablet PRN Reason: Weight gain of 2-3lbs in a day Lisinopril [Zestril] 5 mg PO DAILY #30 tablet Diet: Low Sodium (Less than 2 grams of sodium a day and restrict your fluid intake to no more than 2 liters a day) Activity Restrictions: Activity as Tolerated Shower Restrictions: No Driving Restrictions: No Weight Bearing: Full Weight Additional Instructions or Follow Up instructions: You presented to our emergency room with shortness of breath. You were found to have congestive heart failure. Your echocardiogram showed that your ejection fraction was less than 20%. You were started on IV Lasix, your Coreg dose was increased, you were started on lisinopril and Aldactone. These medications are optimal for the treatment of congestive heart failure. You improved significantly with Lasix. Your current weight is your dry weight. Your goal should be to maintain this weight. If your weight increases by more than 2-3 pounds in a day or more than 5 pounds in a week you need to start taking the water pill that I have prescribed you called Lasix. If your weight does not decrease you will need to call your primary care doctor. I want you to restrict her salt intake to no more than 2 g a day. I also want you to restrict your fluid intake to no more than 2 L a day. I have prescribed you a new prescription for coag, lisinopril, Aldactone, Lasix and potassium I want you to take these medications as directed to you. It is also very important that you followup with your primary care doctor within this week and get an appointment to see a metal solderer. You need further evaluation for the possibility of ischemic cardiomyopathy. I have also referred her to our cardiopulmonary rehabilitation as a bleed he would benefit from this. Follow-Up Care: [facility], [facility] No Smoking: If you smoke, Please STOP! Call for help.
--- NOTE | 2016-08-27 11:33 | DISCHARGE SUMMARY ---
DATE OF ADMISSION: 08/24/2016 DATE OF DISCHARGE: 08/26/2016 PRIMARY CARE PHYSICIAN: LEATHA Wilkerson DISCHARGING PHYSICIAN: Jayjay Walker MD DISCHARGE DIAGNOSES 1. New onset acute systolic heart failure with exacerbation. 2. Atrial fibrillation. 3. Hypertension. 4. Hyperlipidemia. DISCHARGE MEDICATIONS 1. Coumadin 2.5 mg p.o. Friday and Friday and 5 mg p.o. Friday, Friday, Friday, , and Fri. 2. Omeprazole 20 mg p.o. daily. 3. Atorvastatin 40 mg p.o. q.p.m. 4. Albuterol sulfate 1-2 puffs inhaled q.4h. p.r.n. for dyspnea or wheezing. 5. Ambien 5 mg p.o. q.p.m. p.r.n. for insomnia. 6. Aldactone 25 mg p.o. daily. 7. Potassium chloride 40 mEq p.o. daily with meals. 8. Lisinopril 5 mg p.o. daily. 9. Lasix 20 mg p.o. daily p.r.n. for increase of more than 2-3 pounds in 1 day or 5 pounds in 1 week. 10. Coreg 12.5 mg p.o. b.i.d. HOSPITAL COURSE: The patient is a 74-year-old gentleman with a past medical history significant for a trial fibrillation on Coumadin, prostate cancer and history of seed implant, hypertension, and hyperl ipidemia, who presents to the emergency department with a chief complaint of shortness of air. The pa tient was having orthopnea, worsening dyspnea on exertion, and increasing fatigue for the past month. The patient's chest x-ray revealed cardiomegaly and worsening congestive heart failure. The patient' s labs revealed a normal troponin but elevated BNP of 1026. The patient was admitted for new onset de compensated congestive heart failure. The patient underwent an echocardiogram, which revealed ejectio n fraction of less than 20% with global hypokinesis. This was decreased from ejection fraction of 55% in 2013 and also showed grade 4 diastolic dysfunction. The patient had mild aortic valve sclerosis w ith no evidence of stenosis and trace aortic regurgitation. The patient had no mitral stenosis, but d id have moderate mitral regurgitation. There is no tricuspid stenosis. There was moderate tricuspid r egurgitation, and the right ventricular systolic pressure was 44. There is mild to moderate pulmonic regurgitation. The patient had no thrombus and no pleural effusion. The patient was admitted and plac ed on IV Lasix b.i.d. and placed on optimal medication for systolic heart failure including Coreg, fo r which his dose was increased from his home dose. He was started on lisinopril and Aldactone. The juliana fox had significant improvement in his symptoms, he went from only being able to walk 5 feet before becoming short of breath and fatigued and having to stop to being able to walk greater than 20 feet without feeling short of breath. The patient was given CHF teaching. We discharged the patient home w ith prescriptions for lisinopril, Aldactone, Coreg, Lasix as needed, and potassium as needed. The sariah brower will follow up with his primary care physician within this week, and will need referral to Cardi ology as he does need to be ruled out for ischemic cardiomyopathy. He will likely need a stress test and possibly a cardiac catheterization. Looking at the patient's echo, this appears more likely to be nonischemic cardiomyopathy; however, ischemic cardiomyopathy first needs to be ruled out. The patien mahsa was given CHF teaching. He was also referred to CHF teaching at the [facility] [place] and to cardiopulmona ry rehabilitation. PHYSICAL EXAMINATION AT DISCHARGE VITAL SIGNS: Temperature 36.7, heart rate 78, blood pressure 104/68, respiratory rate 17, O2 saturati on 96% on room air. GENERAL: The patient is alert, able to answer all my questions appropriately. He is not in any acute distress at the moment. HEENT: Pupils are equal and reactive to light. Extraocular muscles are intact. Mucous membranes are m oist. There is no conjunctival pallor or scleral icterus noted. NECK: Supple. No thyromegaly. There is mild JVD, which is much improved from presentation. LYMPH NODES: There is no cervical or axillary lymphadenopathy noted. CARDIOVASCULAR: S1, S2. There is S3 heard. There is positive systolic murmur. RESPIRATORY: There is some mild bibasilar crackles, which are much improved from presentation. ABDOME N: Soft, nontender, nondistended. Bowel sounds are present in all 4 quadrants. EXTREMITIES: There is trace lower extremity edema, which is much improved from presentation. Otherwise, no cyanosis or club vish is noted. Peripheral pulses are palpable. SKIN: No skin rashes, lesions, cellulitis, or abscesses. MUSCULOSKELETAL: The patient has good range of motion. No joint tenderness, no joint effusions. NEURO LOGIC: The patient is alert, oriented x3. Cranial nerves 2-12 are grossly intact. Strength is grossly normal. Sensations are intact. LABORATORY: WBC is 7.6, hemoglobin 14.4, hematocrit 43.4, platelet count 200. INR 2.1. Sodium 137, po tassium 3.8, chloride 101, carbon dioxide 28, BUN 26, creatinine 1.1, glucose is 96. Hemoglobin A1c i s 5.7, calcium is 8.9, phosphorus 4.0, magnesium 1.7, total bilirubin 1.0, AST 36, ALT 32, alkaline p hosphatase 97. Troponin less than 0.04. BNP initially was 1026 at discharge is 271. Albumin 3.5. UA p ositive for protein and glucose, otherwise negative. IMAGING 1. Chest x-ray, impression: Interval worsening cardiomegaly and worsening congestive heart failure. 2. EKG, impression: Atrial fibrillation with left ventricular hypertrophy and T-wave inversions in th e anterior leads. No ST elevations. 3. Echocardiogram, impression: Severe left ventricular enlargement. Left ventricular wall thickness i s normal. Overall left ventricular systolic function is severely impaired with an ejection fraction o f less than 20% as compared to prior echo with ejection fraction of 55% in 2013, severe global hypoki nesis with left ventricular contractility, reversible restrictive left ventricular filling pattern wi th Valsalva consistent with grade 4 diastolic dysfunction. There is severe increase in left atrial vo lume index, moderate to severe right atrial enlargement. No aortic stenosis. Trace aortic regurgitati on. No mitral stenosis. Moderate mitral regurgitation. Moderate tricuspid regurgitation. No tricuspid stenosis. Mild to moderate pulmonic regurgitation. No pulmonic stenosis. No thrombus or masses seen. FOLLOWUP/RECOMMENDATIONS: The patient is being discharged home on optimal treatment for CHF including Coreg, lisinopril, Aldactone and Lasix as needed. The patient was given teaching on CHF. He will fol low up with his primary care physician and needs a referral to Cardiology to rule out ischemic cardio myopathy. The patient was also referred to CHF classes and to cardiopulmonary rehabilitation. Greater than 30 minutes were spent on discharge. JOB #: [id number] EXT JOB #:[id number]
== END 2016-08-26 12:30 | disposition home or self-care (01) | DRG 293 ==
LOC: ED 07:28 → MS 10:12 → ED 10:51
PROVIDERS: ADMIT Internal Medicine; ATTEND Internal Medicine
DX: I11.0 Hypertensive heart disease with heart failure (principal); I50.9 Heart failure, unspecified; R09.02 Hypoxemia; R07.89 Other chest pain; I48.91 Unspecified atrial fibrillation; I50.23 Acute on chronic systolic (congestive) heart failure; I48.2 Chronic atrial fibrillation; Z86.73 Personal history of transient ischemic attack (TIA), and cerebral infarction without residual deficits; E78.5 Hyperlipidemia, unspecified; K21.9 Gastro-esophageal reflux disease without esophagitis; R73.9 Hyperglycemia, unspecified; Z79.01 Long term (current) use of anticoagulants; Z85.46 Personal history of malignant neoplasm of prostate; Z87.01 Personal history of pneumonia (recurrent)
CPT/HCPCS: 36415; 71010; 80048; 80053; 81001; 81003; 83036; 83735; 83880; 84100; 84484; 85025; 85610; 87086; 93005; 93010; 93306; 96374; 99284

== ENCOUNTER 2016-09-02 10:03 | Outpatient (CLI) | payer MEDICARE | END 2016-09-02 10:04 | disposition home or self-care (01) | LOC: LAB.N 10:03 | PROVIDERS: ATTEND Nurse Practitioner Gerontology | DX: I50.9 Heart failure, unspecified (principal) | CPT/HCPCS: 36415; 83880 ==

== ENCOUNTER 2016-09-11 23:54 | Outpatient (CLI) | payer MEDICARE | END 2016-09-11 23:55 | LOC: LAB.N 23:54 | PROVIDERS: ATTEND Nurse Practitioner Gerontology | DX: I48.91 Unspecified atrial fibrillation (principal) | CPT/HCPCS: 85610 ==

== ENCOUNTER 2016-10-07 11:44 | Outpatient (CLI) | payer MEDICARE | END 2016-10-07 11:45 | disposition home or self-care (01) | LOC: LAB.N 11:44 | PROVIDERS: ATTEND Nurse Practitioner Gerontology | DX: I48.91 Unspecified atrial fibrillation (principal) | CPT/HCPCS: 85610 ==

== ENCOUNTER 2016-10-24 10:47 | Outpatient (CLI) | payer MEDICARE | END 2016-10-24 10:48 | disposition home or self-care (01) | LOC: RT 10:47 | PROVIDERS: ATTEND Internal Medicine Cardiovascular Disease | DX: I48.91 Unspecified atrial fibrillation (principal) | CPT/HCPCS: 93005 ==

== ENCOUNTER 2016-11-13 11:10 | Outpatient (CLI) | payer MEDICARE | END 2016-11-13 11:11 | LOC: LAB.N 11:10 | PROVIDERS: ATTEND Nurse Practitioner Gerontology | DX: I48.91 Unspecified atrial fibrillation (principal) | CPT/HCPCS: 85610 ==

== ENCOUNTER 2016-12-18 15:20 | Outpatient (CLI) | payer MEDICARE | END 2016-12-18 15:21 | disposition home or self-care (01) | LOC: LAB.N 15:20 | PROVIDERS: ATTEND Nurse Practitioner Gerontology | DX: I48.91 Unspecified atrial fibrillation (principal) | CPT/HCPCS: 85610 ==

== ENCOUNTER 2016-12-27 08:33 | Outpatient (CLI) | payer MEDICARE | END 2016-12-27 08:34 | disposition home or self-care (01) | LOC: LAB.N 08:33 | PROVIDERS: ATTEND Nurse Practitioner Gerontology | DX: I48.91 Unspecified atrial fibrillation (principal) | CPT/HCPCS: 85610 ==

== ENCOUNTER 2017-01-03 10:50 | Outpatient (CLI) | payer MEDICARE | END 2017-01-03 10:51 | disposition home or self-care (01) | LOC: LAB.N 10:50 | PROVIDERS: ATTEND Nurse Practitioner Gerontology | DX: I48.91 Unspecified atrial fibrillation (principal) | CPT/HCPCS: 85610 ==

== ENCOUNTER 2017-01-17 14:14 | Outpatient (CLI) | payer MEDICARE | END 2017-01-17 14:15 | disposition home or self-care (01) | LOC: LAB 14:14 | PROVIDERS: ATTEND Nurse Practitioner Gerontology | DX: I48.91 Unspecified atrial fibrillation (principal) | CPT/HCPCS: 85610 ==

== ENCOUNTER 2017-01-31 13:28 | Outpatient (CLI) | payer MEDICARE | END 2017-01-31 13:29 | disposition home or self-care (01) | LOC: LAB 13:28 | PROVIDERS: ATTEND Nurse Practitioner Gerontology | DX: I48.91 Unspecified atrial fibrillation (principal) | CPT/HCPCS: 36415; 85610 ==

== ENCOUNTER 2017-02-07 12:55 | Outpatient (CLI) | payer MEDICARE | END 2017-02-07 12:56 | disposition home or self-care (01) | LOC: LAB 12:55 | PROVIDERS: ATTEND Nurse Practitioner Gerontology | DX: I48.91 Unspecified atrial fibrillation (principal) | CPT/HCPCS: 85610 ==

== ENCOUNTER 2017-02-14 11:42 | Outpatient (CLI) | payer MEDICARE | END 2017-02-14 11:43 | disposition home or self-care (01) | LOC: LAB 11:42 | PROVIDERS: ATTEND Nurse Practitioner Gerontology | DX: I48.91 Unspecified atrial fibrillation (principal) | CPT/HCPCS: 85610 ==

== ENCOUNTER 2017-02-21 11:22 | Outpatient (CLI) | payer MEDICARE | END 2017-02-21 11:23 | disposition home or self-care (01) | LOC: LAB 11:22 | PROVIDERS: ATTEND Nurse Practitioner Gerontology | DX: I48.91 Unspecified atrial fibrillation (principal) | CPT/HCPCS: 85610 ==

== ENCOUNTER 2017-02-28 14:42 | Outpatient (CLI) | payer MEDICARE | END 2017-02-28 14:43 | disposition home or self-care (01) | LOC: LAB 14:42 | PROVIDERS: ATTEND Nurse Practitioner Gerontology | DX: I48.91 Unspecified atrial fibrillation (principal) | CPT/HCPCS: 85610 ==

== ENCOUNTER 2017-03-13 11:23 | Outpatient (CLI) | payer MEDICARE | END 2017-03-13 11:24 | disposition home or self-care (01) | LOC: LAB.N 11:23 | PROVIDERS: ATTEND Nurse Practitioner Gerontology | DX: I48.91 Unspecified atrial fibrillation (principal) | CPT/HCPCS: 85610 ==

== ENCOUNTER 2017-04-14 12:59 | Outpatient (CLI) | payer MEDICARE | END 2017-04-14 13:00 | disposition home or self-care (01) | LOC: LAB.N 12:59 | PROVIDERS: ATTEND Nurse Practitioner Gerontology | DX: I48.91 Unspecified atrial fibrillation (principal) | CPT/HCPCS: 85610 ==

== ENCOUNTER 2017-05-14 14:42 | Outpatient (CLI) | payer MEDICARE | END 2017-05-14 14:43 | disposition home or self-care (01) | LOC: LAB 14:42 | PROVIDERS: ATTEND Nurse Practitioner Gerontology | DX: I48.91 Unspecified atrial fibrillation (principal) | CPT/HCPCS: 85610 ==

== ENCOUNTER 2017-06-12 08:00 | Outpatient (CLI) | payer MEDICARE | END 2017-06-12 08:01 | disposition home or self-care (01) | LOC: LAB.N 08:00 | PROVIDERS: ATTEND Nurse Practitioner Gerontology | DX: I48.91 Unspecified atrial fibrillation (principal) | CPT/HCPCS: 85610 ==

== ENCOUNTER 2017-06-23 14:57 | Outpatient (CLI) | payer MEDICARE | END 2017-06-23 14:58 | disposition home or self-care (01) | LOC: LAB 14:57 | PROVIDERS: ATTEND Nurse Practitioner Gerontology | DX: I48.91 Unspecified atrial fibrillation (principal) | CPT/HCPCS: 85610 ==

== ENCOUNTER 2017-07-02 13:29 | Outpatient (CLI) | payer MEDICARE | END 2017-07-02 13:30 | disposition home or self-care (01) | LOC: LAB 13:29 | PROVIDERS: ATTEND Nurse Practitioner Gerontology | DX: I48.91 Unspecified atrial fibrillation (principal) | CPT/HCPCS: 85610 ==

== ENCOUNTER 2017-07-22 11:43 | Outpatient (CLI) | payer MEDICARE | END 2017-07-22 11:44 | disposition home or self-care (01) | LOC: LAB 11:43 | PROVIDERS: ATTEND Nurse Practitioner Gerontology | DX: I48.91 Unspecified atrial fibrillation (principal) | CPT/HCPCS: 85610 ==

== ENCOUNTER 2017-08-25 10:38 | Outpatient (CLI) | payer MEDICARE | END 2017-08-25 10:39 | disposition home or self-care (01) | LOC: LAB 10:38 | PROVIDERS: ATTEND Nurse Practitioner Gerontology | DX: I48.91 Unspecified atrial fibrillation (principal) | CPT/HCPCS: 85610 ==

== ENCOUNTER 2017-09-05 13:09 | Outpatient (CLI) | payer MEDICARE | END 2017-09-05 13:10 | disposition home or self-care (01) | LOC: LAB 13:09 | PROVIDERS: ATTEND Nurse Practitioner Gerontology | DX: I48.91 Unspecified atrial fibrillation (principal) | CPT/HCPCS: 85610 ==

== ENCOUNTER 2017-10-09 14:47 | Outpatient (CLI) | payer MEDICARE | END 2017-10-09 14:48 | disposition home or self-care (01) | LOC: LAB 14:47 | PROVIDERS: ATTEND Nurse Practitioner Gerontology | DX: I48.91 Unspecified atrial fibrillation (principal) | CPT/HCPCS: 85610 ==

== ENCOUNTER 2017-10-28 14:03 | Outpatient (CLI) | payer MEDICARE | END 2017-10-28 14:04 | disposition home or self-care (01) | LOC: LAB 14:03 | PROVIDERS: ATTEND Nurse Practitioner Gerontology | DX: I48.91 Unspecified atrial fibrillation (principal) | CPT/HCPCS: 85610 ==

== ENCOUNTER 2017-11-24 10:19 | Outpatient (CLI) | payer MEDICARE | END 2017-11-24 10:20 | disposition home or self-care (01) | LOC: LAB 10:19 | PROVIDERS: ATTEND Nurse Practitioner Gerontology | DX: I48.91 Unspecified atrial fibrillation (principal) | CPT/HCPCS: 85610 ==

== ENCOUNTER 2017-12-08 14:41 | Outpatient (CLI) | payer MEDICARE | END 2017-12-08 14:42 | disposition home or self-care (01) | LOC: LAB 14:41 | PROVIDERS: ATTEND Nurse Practitioner Gerontology | DX: I48.91 Unspecified atrial fibrillation (principal) | CPT/HCPCS: 85610 ==

== ENCOUNTER 2018-02-08 13:51 | Emergency (ER) | payer MEDICARE ==
--- NOTE | 2018-02-08 14:20 | ED Physician Documentation ---
PD HPI URI - Stated complaint Stated Complaint: PAIN IN THROAT/TONGUE DISCOLORATION - Chief complaint Chief Complaint: Ext Problem - History obtained from History obtained from: Patient - History of Present Illness Timing - onset: How many weeks ago (has had a week or two of increasing dyspnea, weakness, and some edema. History of atrial fib, but was doing well so had gotten down from meds and stopped all except anticoag. No Losartan, diuretic nor Carvedilol for past few months.) Timing duration: Weeks (1-2) Timing details: Gradual onset, Still present Associated symptoms: Sore throat (has had some throat and esophageal pain with swallowing for awhile and is getting endoscopy next week about it.). No: Fever Contributing factors: No: Sick contact, Travel Similar symptoms before: Diagnosis (atrial fib in the past, but recent controlled and feeling okay.) Review of Systems Constitutional: denies: Fever, Chills Nose: denies: Rhinorrhea / runny nose, Congestion Throat: reports: Sore throat. denies: Swollen tonsils Cardiac: reports: Palpitations, Pedal edema. denies: Chest pain / pressure, Calf pain Respiratory: denies: Dyspnea, Cough GI: denies: Abdominal Pain, Nausea, Vomiting, Diarrhea, Bloody / black stool Musculoskeletal: reports: Extremity swelling Neurologic: denies: Focal weakness, Numbness, Near syncope PD PAST MEDICAL HISTORY - Past Medical History Cardiovascular: Hypertension, High cholesterol, Atrial fibrillation Respiratory: Pneumonia Endocrine/Autoimmune: None GI: GERD : Other HEENT: None Psych: None Musculoskeletal: None Derm: None - Past Surgical History Past Surgical History: Yes HEENT: Tonsil/Adenoidectomy - Present Medications Home Medications: Ambulatory Orders Medication Instructions Recorded Confirmed Omeprazole 20 mg PO QDAC 05/21/16 08/24/16 Warfarin [Coumadin] 5 mg PO MOFR@1400 08/24/16 08/24/16 Carvedilol 12.5 mg PO BID #30 tablet 02/08/18 Furosemide [Lasix] 20 mg PO DAILY #5 tablet 02/08/18 Magnesium Oxide [Mag Ox] 400 mg PO DAILY #15 tablet 02/08/18 Potassium Chloride 10 meq PO DAILY #15 tablet.er 02/08/18 - Allergies Allergies/Adverse Reactions: Allergies Allergy/AdvReac Type Severity Reaction Status Date / Time No Known Drug Allergies Allergy Verified 02/08/18 14:35 - Social History Does the pt smoke?: No Smoking Status: Never smoker Does the pt drink ETOH?: No Does the pt have substance abuse?: No - Immunizations Immunizations are current?: No - POLST Patient has POLST: No POLST Status: Full Code PD ED PE NORMAL - Vitals Vital signs reviewed: Yes - General General: Alert and oriented X 3, No acute distress, Well developed/nourished - HEENT HEENT: Moist mucous membranes, Pharynx benign - Neck Neck: Supple, no meningeal sign, No adenopathy - Cardiac Cardiac: No murmur. No: RRR (irregular and moderately fast. ) - Respiratory Respiratory: No respiratory distress, Clear bilaterally (just faint crackles in bases) - Abdomen Abdomen: Soft, Non tender - Derm Derm: Normal color, Warm and dry - Extremities Extremities: No tenderness to palpate, Normal ROM s pain, No calf tenderness / cord, Other (1+ edema in legs, not tender. ) - Neuro Neuro: Alert and oriented X 3, No motor deficit, Normal speech Results - Vitals Vitals: Oxygen O2 Source Room air - EKG (time done) 14:26 Rate: Rate (enter#) (110) Rhythm: Atrial fibrillation [place]: Normal QRS: Normal Ischemia: Normal ST segments. No: ST elevation c/w ischemia, ST depression - Labs Labs: Laboratory Tests 02/08/18 02/08/18 02/08/18 14:30 14:30 14:30 WBC 4.7 L RBC 4.74 Hgb 14.1 Hct 41.1 L MCV 86.6 MCH 29.7 MCHC 34.3 RDW 13.9 Plt Count 207 MPV 9.9 Neut # (Auto) 3.3 Lymph # (Auto) 0.9 L [place] # (Auto) 0.5 Eos # (Auto) 0.0 Baso # (Auto) 0.0 Absolute Nucleated RBC 0.00 Nucleated RBC % 0.1 Manual Slide Review Indicated WBC Morphology NORMAL APPEARANCE Platelet Estimate NORMAL (130-450,000) Platelet Morphology RARE GIANT PLATELETS RBC Morph Micro Appear 1+ POLYCHROMASIA PT INR Sodium 135 Potassium 3.3 L Chloride 103 Carbon Dioxide 23 Anion Gap 9.0 BUN 22 H Creatinine 1.3 H Estimated GFR (MDRD) 54 L Glucose 123 H Calcium 8.6 Magnesium Total Bilirubin 0.9 AST 24 ALT 14 Alkaline Phosphatase 83 Troponin I < 0.04 B-Natriuretic Peptide Total Protein 6.8 Albumin 3.9 Globulin 2.9 Albumin/Globulin Ratio 1.3 Lipase 38 02/08/18 02/08/18 02/08/18 14:30 14:30 14:30 WBC RBC Hgb Hct MCV MCH MCHC RDW Plt Count MPV Neut # (Auto) Lymph # (Auto) [place] # (Auto) Eos # (Auto) Baso # (Auto) Absolute Nucleated RBC Nucleated RBC % Manual Slide Review WBC Morphology Platelet Estimate Platelet Morphology RBC Morph Micro Appear PT 27.1 H INR 2.4 H Sodium Potassium Chloride Carbon Dioxide Anion Gap BUN Creatinine Estimated GFR (MDRD) Glucose Calcium Magnesium 1.6 L Total Bilirubin AST ALT Alkaline Phosphatase Troponin I B-Natriuretic Peptide 643 H Total Protein Albumin Globulin Albumin/Globulin Ratio Lipase - Rads (name of study) chest xray Radiology: Prelim report reviewed (some interstitial edema) PD MEDICAL DECISION MAKING - ED course Complexity details: re-evaluated patient (veeling better with heart rate slowed. to have patient resume his prior Carvedilol. ), considered differential (throat pain likely reflux and has endoscopy scheduled soon. Weakness and some dyspnea from atrial fib going fast. ), d/w patient Departure - Departure Disposition: 01 Home, Self Care Clinical Impression: Atrial fibrillation with rapid ventricular response, Throat pain in adult Condition: Stable Record reviewed to determine appropriate education?: Yes Instructions: ED Afib Follow-Up: Keiko Peres MD [Primary Care Provider] - Prescriptions: Carvedilol 12.5 mg PO BID #30 tablet Furosemide [Lasix] 20 mg PO DAILY #5 tablet Magnesium Oxide [Mag Ox] 400 mg PO DAILY #15 tablet Potassium Chloride 10 meq PO DAILY #15 tablet.er Comments: Resume your carvedilol initially 6.25 mg twice daily (half a tablet) for 5 days and then increase to 12.5 mg twice daily if your blood pressures not too low. Use furosemide diuretic daily for 5 days. Add magnesium and potassium supplem ents for the next 2 weeks. 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 Return to the ER if you not having improved symptoms over the next few days and return sooner if worsening. It does look like your atrial fibrillation going too fast is given you your symptoms and has created a little bit of fluid in the lungs and we should be able to treat these with the above medications. Discharge Date/Time: 02/08/18 17:06
[2018-02-08 14:40] LABS: BASOPHILS % (AUTO) 0.7 %; EOSINOPHILS % (AUTO) 0.7 %; HGB - HEMOGLOBIN 14.1 g/dL (14.0-18.0); LYMPHOCYTES # (AUTO) 0.9 10^3/uL (1.5-3.5); LYMPHOCYTES % (AUTO) 18.6 %; MEAN CORPUSCULAR HEMOGLOBIN 29.7 pg (27.0-31.0); MEAN CORPUSCULAR HGB CONC 34.3 g/dL (32.0-36.0); MEAN CORPUSCULAR VOLUME 86.6 fL (80.0-94.0); MEAN PLATELET VOLUME 9.9 fL (7.4-11.4); MONOCYTES # (AUTO) 0.5 10^3/uL (0.0-1.0); MONOCYTES % (AUTO) 10.3 %; NEUTROPHILS # (AUTO) 3.3 10^3/uL (1.5-6.6); NEUTROPHILS % (AUTO) 69.7 %; PLT - PLATELET COUNT 207 10^3/uL (130-450); RED BLOOD COUNT 4.74 10^6/uL (4.70-6.10); RED CELL DISTRIBUTION WIDTH 13.9 % (12.0-15.0); WHITE BLOOD COUNT 4.7 x10^3/uL (4.8-10.8)
--- NOTE | 2018-02-08 14:46 | XRAY Report ---
Reason: palpitations Procedure Date: 02/08/2018 Accession Number: [id number] / [id number] Procedure: XR - Chest 1 View X-Ray CPT Code: 52135 FULL RESULT: EXAM: CHEST RADIOGRAPHY EXAM DATE: 02/08/2018 02:28 PM. CLINICAL HISTORY: PALPITATIONS. COMPARISON: CHEST 1 VIEW 08/24/2016 7:58 AM. TECHNIQUE: 1 view. FINDINGS: Lungs/Pleura: There is borderline pulmonary vascular congestion and increased interstitial markings. There is no effusion, pneumothorax, or consolidation. Mediastinum: Within exam limitations, the cardiomediastinal contour is normal. Other: None. IMPRESSION: Borderline CHF/fluid overload which may be chronic. No acute findings demonstrated otherwise. RADIA
[2018-02-08 14:50] LABS: ALBUMIN 3.9 g/dL (3.2-5.5); ALBUMIN/GLOBULIN RATIO 1.3 (1.0-2.2); BILIRUBIN,TOTAL 0.9 mg/dL (0.2-1.0); CALCIUM 8.6 mg/dL (8.5-10.3); CREATININE 1.3 mg/dL (0.6-1.2); TOTAL PROTEIN 6.8 g/dL (6.7-8.2)
[2018-02-08 15:08] LABS: PLATELET ESTIMATE, MANUAL NORMAL (130-450,000) (NORMAL); PLATELET MORPHOLOGY RARE GIANT PLATELETS (NORMAL)
[2018-02-08 15:09] LABS: RBC MORPHOLOGY (MULTIPLE) 1+ POLYCHROMASIA (NORMAL)
[2018-02-08] MEDS ORDERED: FUROSEMIDE 20 MG/2 ML VIAL IVP STA (15:24)
[2018-02-08] MEDS ORDERED: METOPROLOL 5 MG/5 ML VIAL IVP STA (15:24)
[2018-02-08 15:48] LABS: INR 2.4 (0.8-1.2); PT - PROTHROMBIN TIME 27.1 secs (9.9-12.6)
[2018-02-08 16:44] VITALS: BP 125/95
== END 2018-02-08 17:06 | disposition home or self-care (01) ==
LOC: ED 13:51
DX: I48.91 Unspecified atrial fibrillation (principal); J02.9 Acute pharyngitis, unspecified; Z79.01 Long term (current) use of anticoagulants; I10 Essential (primary) hypertension
CPT/HCPCS: 36415; 71045; 80053; 83690; 83735; 83880; 84484; 85025; 85610; 93005; 96374; 96375; 99283; 99284

== ENCOUNTER 2018-02-20 14:07 | Outpatient (CLI) | payer MEDICARE | END 2018-02-20 14:08 | disposition home or self-care (01) | LOC: LAB 14:07 | PROVIDERS: ATTEND Nurse Practitioner Gerontology | DX: I48.91 Unspecified atrial fibrillation (principal) | CPT/HCPCS: 85610 ==

== ENCOUNTER 2018-03-13 12:46 | Outpatient (CLI) | payer MEDICAID, MEDICARE | END 2018-03-13 12:47 | disposition home or self-care (01) | LOC: DI 12:46 | PROVIDERS: ATTEND Internal Medicine Cardiovascular Disease | DX: I11.0 Hypertensive heart disease with heart failure (principal); I50.9 Heart failure, unspecified | CPT/HCPCS: 93306 ==

== ENCOUNTER 2018-03-27 10:00 | Outpatient (CLI) | payer MEDICARE, MEDICAID ==
[2018-03-27 10:27] LABS: BASOPHILS % (AUTO) 0.9 %; EOSINOPHILS # (AUTO) 0.1 10^3/uL (0.0-0.7); EOSINOPHILS % (AUTO) 1.5 %; HGB - HEMOGLOBIN 13.3 g/dL (14.0-18.0); LYMPHOCYTES # (AUTO) 0.8 10^3/uL (1.5-3.5); LYMPHOCYTES % (AUTO) 17.9 %; MEAN CORPUSCULAR HEMOGLOBIN 28.8 pg (27.0-31.0); MEAN CORPUSCULAR HGB CONC 32.9 g/dL (32.0-36.0); MEAN CORPUSCULAR VOLUME 87.5 fL (80.0-94.0); MEAN PLATELET VOLUME 9.3 fL (7.4-11.4); MONOCYTES # (AUTO) 0.3 10^3/uL (0.0-1.0); MONOCYTES % (AUTO) 6.9 %; NEUTROPHILS # (AUTO) 3.1 10^3/uL (1.5-6.6); NEUTROPHILS % (AUTO) 72.8 %; PLT - PLATELET COUNT 265 10^3/uL (130-450); RED BLOOD COUNT 4.63 10^6/uL (4.70-6.10); RED CELL DISTRIBUTION WIDTH 13.9 % (12.0-15.0); WHITE BLOOD COUNT 4.2 x10^3/uL (4.8-10.8)
[2018-03-27 11:07] LABS: ALBUMIN 3.5 g/dL (3.2-5.5); ALBUMIN/GLOBULIN RATIO 1.1 (1.0-2.2); BILIRUBIN,TOTAL 0.8 mg/dL (0.2-1.0); CREATININE 1.1 mg/dL (0.6-1.2); TOTAL PROTEIN 6.6 g/dL (6.7-8.2)
== END 2018-03-27 10:01 | disposition home or self-care (01) ==
LOC: LAB 10:00
PROVIDERS: ATTEND Physician Assistant
DX: Z01.812 Encounter for preprocedural laboratory examination (principal); I48.91 Unspecified atrial fibrillation; Z79.01 Long term (current) use of anticoagulants; Z12.11 Encounter for screening for malignant neoplasm of colon
CPT/HCPCS: 36415; 80053; 85025

== ENCOUNTER 2018-05-04 09:14 | Outpatient (CLI) | payer MEDICARE, MEDICAID | END 2018-05-04 09:15 | disposition home or self-care (01) | LOC: LAB 09:14 | PROVIDERS: ATTEND Nurse Practitioner Gerontology | DX: I48.91 Unspecified atrial fibrillation (principal) | CPT/HCPCS: 85610 ==

== ENCOUNTER 2018-05-14 15:49 | Outpatient (CLI) | payer MEDICARE, MEDICAID ==
[2018-05-14 16:17] LABS: CALCIUM 9.3 mg/dL (8.5-10.3); CREATININE 1.1 mg/dL (0.6-1.2)
== END 2018-05-14 15:50 | disposition home or self-care (01) ==
LOC: LAB 15:49
PROVIDERS: ATTEND Internal Medicine Cardiovascular Disease
DX: I48.91 Unspecified atrial fibrillation (principal); I50.9 Heart failure, unspecified
CPT/HCPCS: 36415; 80048; 85610

== ENCOUNTER 2018-06-26 08:56 | Outpatient (CLI) | payer MEDICARE, MEDICAID ==
[2018-06-26 09:38] LABS: PT - PROTHROMBIN TIME 22.4 secs (9.9-12.6)
== END 2018-06-26 08:57 | disposition home or self-care (01) ==
LOC: LAB 08:56
PROVIDERS: ATTEND Family Medicine
DX: Z79.01 Long term (current) use of anticoagulants (principal)
CPT/HCPCS: 36415; 85610

== ENCOUNTER 2018-07-03 13:50 | Outpatient (CLI) | payer MEDICARE, MEDICAID | END 2018-07-03 13:51 | disposition home or self-care (01) | LOC: LAB 13:50 | PROVIDERS: ATTEND Family Medicine | DX: Z79.01 Long term (current) use of anticoagulants (principal) | CPT/HCPCS: 36415; 85610 ==

== ENCOUNTER 2018-07-31 14:52 | Outpatient (CLI) | payer MEDICARE, MEDICAID | END 2018-07-31 14:53 | disposition home or self-care (01) | LOC: LAB 14:52 | PROVIDERS: ATTEND Family Medicine | DX: Z51.81 Encounter for therapeutic drug level monitoring (principal); Z79.01 Long term (current) use of anticoagulants | CPT/HCPCS: 85610 ==

== ENCOUNTER 2018-09-04 09:49 | Outpatient (CLI) | payer MEDICARE, MEDICAID | END 2018-09-04 09:50 | disposition home or self-care (01) | LOC: LAB 09:49 | PROVIDERS: ATTEND Family Medicine | DX: Z79.01 Long term (current) use of anticoagulants (principal) | CPT/HCPCS: 85610 ==

== ENCOUNTER 2018-10-19 13:43 | Outpatient (CLI) | payer MEDICARE, MEDICAID | END 2018-10-19 13:44 | disposition home or self-care (01) | LOC: LAB 13:43 | PROVIDERS: ATTEND Family Medicine | DX: Z79.01 Long term (current) use of anticoagulants (principal) | CPT/HCPCS: 85610 ==

== ENCOUNTER 2018-11-19 11:49 | Outpatient (CLI) | payer MEDICARE, MEDICAID | END 2018-11-19 11:50 | disposition home or self-care (01) | LOC: LAB 11:49 | PROVIDERS: ATTEND Family Medicine | DX: Z79.01 Long term (current) use of anticoagulants (principal) | CPT/HCPCS: 85610 ==

== ENCOUNTER 2019-01-01 09:06 | Emergency (ER) | payer MEDICARE, MEDICAID ==
[2019-01-01 09:17] VITALS: BP 117/78
--- NOTE | 2019-01-01 09:36 | ED Physician Documentation ---
History of Present Illness - Stated complaint Stated Complaint: FINGER INJURY - Chief complaint Chief Complaint: Laceration - Additonal information Additional information: This is a 78-year-old male with a history of atrial fibrillation on warfarin, who presents with a finger injury to his right middle finger. He is moving his carry a metal box and he tripped falling forward in the metal box lacerated his finger. He states that now he does not have pain in the finger, he presented initially because he had persistent bleeding. He noticed that there is a laceration to the tip of his finger. He denies pain elsewhere did not hit his head. Review of Systems Constitutional: denies: Fever Skin: reports: Laceration (s) Endocrine: reports: Easy bruising / bleeding PD PAST MEDICAL HISTORY - Past Medical History Cardiovascular: Hypertension, High cholesterol, Atrial fibrillation Respiratory: Pneumonia Endocrine/Autoimmune: None GI: GERD : Other HEENT: None Psych: None Musculoskeletal: None Derm: None - Past Surgical History Past Surgical History: Yes HEENT: Tonsil/Adenoidectomy - Present Medications Home Medications: Ambulatory Orders Medication Instructions Recorded Confirmed Omeprazole 20 mg PO QDAC 05/21/16 08/24/16 Warfarin [Coumadin] 5 mg PO MOFR@1400 08/24/16 08/24/16 Carvedilol 12.5 mg PO BID #30 tablet 02/08/18 Furosemide [Lasix] 20 mg PO DAILY #5 tablet 02/08/18 Magnesium Oxide [Mag Ox] 400 mg PO DAILY #15 tablet 02/08/18 Potassium Chloride 10 meq PO DAILY #15 tablet.er 02/08/18 - Allergies Allergies/Adverse Reactions: Allergies Allergy/AdvReac Type Severity Reaction Status Date / Time No Known Drug Allergies Allergy Verified 01/01/19 09:14 - Social History Does the pt smoke?: No Smoking Status: Never smoker Does the pt drink ETOH?: No Does the pt have substance abuse?: No - Immunizations Immunizations are current?: No - POLST Patient has POLST: No POLST Status: Full Code PD ED PE NORMAL - Vitals Vital signs reviewed: Yes - General General: Alert and oriented X 3, No acute distress - HEENT HEENT: Atraumatic - Cardiac Cardiac: Strong equal pulses - Respiratory Respiratory: No respiratory distress - Extremities Extremities: Other (Right middle finger has a 1.5cm laceration on the lateral aspect that extends into the subcutaneous tissue. No active bleeding. brisk capillary refill, sensation to light touch intact over entire digit. No tenderness to palpation of the digit or remainder of the hand.) - Neuro Neuro: Alert and oriented X 3 - Psych Psych: Normal mood, Normal affect Results - Vitals Vitals: Vital Signs - 24 hr 01/01/19 09:14 Temperature 37 C Heart Rate 86 Respiratory 16 Rate Blood Pressure 117/78 O2 Saturation 97 Oxygen O2 Source Room air Procedures - Laceration (location) Finger Length in cm: 1.5 Wound type: Linear Neurovascular status: Sensory intact, Motor intact, Vascular intact Tendon involvement: Tendon intact Skin layer closure: Dermabond, Steri strips Other: Patient tolerated well, No complications, Neurovascular intact, Dressing applied, Tetanus UTD Complexity: Simple PD MEDICAL DECISION MAKING - ED course ED course: Patient presents with a simple laceration to the right middle finger without signs of tendon laceration or deep structure injury. PIP and isolated DIP flexion intact. He is non-tender, I recommended an XR given the mechanism but patient declined stating he has no pain whatsoever. He agrees to return if he develops pain. After thorough cleaning the laceration is repaired as noted above with excellent approximation and hemostasis. It was bandaged. TDAP is up to date. Return precuations and wound care discussed and patient was discharged home. Departure - Departure Disposition: 01 Home, Self Care Clinical Impression: Laceration Condition: Good Instructions: ED Laceration Ext Sutr Stap Tape Follow-Up: Keiko Peres MD [Primary Care Provider] - As Needed Comments: You were seen today for a cut on your finger, this was fixed using Steri-Strips and skin glue. Please protect the finger and avoid it from being reinjured. If the cut opens up or if you have return of bleeding, or any signs of infection such as redness streaking up your finger, please return to the emergency department. The skin glue and Steri-Strips Will fall off on their own after 7-1 0 days or so. Discharge Date/Time: 01/01/19 10:10
== END 2019-01-01 10:10 | disposition home or self-care (01) ==
LOC: ED 09:06
DX: S61.212A Laceration without foreign body of right middle finger without damage to nail, initial encounter (principal); W18.40XA Slipping, tripping and stumbling without falling, unspecified, initial encounter; W26.9XXA Contact with unspecified sharp object(s), initial encounter; I48.91 Unspecified atrial fibrillation; I10 Essential (primary) hypertension; Z79.01 Long term (current) use of anticoagulants; Z79.899 Other long term (current) drug therapy
CPT/HCPCS: 12001; 99282

== ENCOUNTER 2019-01-27 08:24 | Emergency (ER) | payer MEDICARE, MEDICAID ==
[2019-01-27 08:37] VITALS: BP 126/93
--- NOTE | 2019-01-27 09:16 | ED Physician Documentation ---
PD HPI URI - Stated complaint Stated Complaint: CONGESTION/COUGH - Chief complaint Chief Complaint: Resp - History obtained from History obtained from: Patient - History of Present Illness Timing - onset: How many weeks ago (3) Timing duration: Weeks (3) Timing details: Gradual onset, Still present (has had decrease in sputum production, but still with cough and feeling dyspnea.) Associated symptoms: Nasal congestion, Productive cough, Dyspnea. No: Fever, Sore throat, Hemoptysis, Chest pain Contributing factors: COPD / asthma. No: Sick contact, Travel Similar symptoms before: Has not had sx before Recently seen: Clinic (seen at [facility] and Rx with Doxycycline with improvement but not resolution. Still with cough and dyspnea.) Review of Systems Constitutional: reports: Myalgias, Fatigue. denies: Fever, Chills Nose: reports: Congestion. denies: Rhinorrhea / runny nose Throat: denies: Sore throat Cardiac: denies: Chest pain / pressure Respiratory: reports: Dyspnea, Cough, Wheezing GI: denies: Nausea, Vomiting, Diarrhea Musculoskeletal: denies: Extremity swelling Neurologic: reports: Generalized weakness. denies: Focal weakness, Numbness, Headache PD PAST MEDICAL HISTORY - Past Medical History Cardiovascular: Hypertension, High cholesterol, Atrial fibrillation Respiratory: Pneumonia Endocrine/Autoimmune: None GI: GERD : Other HEENT: None Psych: None Musculoskeletal: None Derm: None - Past Surgical History Past Surgical History: Yes HEENT: Tonsil/Adenoidectomy - Present Medications Home Medications: Ambulatory Orders Medication Instructions Recorded Confirmed Warfarin [Coumadin] 5 mg PO MOFR@1400 08/24/16 08/24/16 Magnesium Oxide [Mag Ox] 400 mg PO DAILY #15 tablet 02/08/18 carvediloL [Carvedilol] 12.5 mg PO BID #30 tablet 02/08/18 Albuterol Sulf [Ventolin Hfa 1 - 2 puffs INH Q4HR PRN #1 inhaler 01/27/19 Inhaler] Cephalexin [Keflex] 500 mg PO TID #21 capsule 01/27/19 Losartan Potassium 12.5 mg PO DAILY 01/27/19 01/27/19 Spironolactone [Aldactone] 12.5 mg PO DAILY 01/27/19 01/27/19 dexAMETHasone [Decadron] 4 mg PO DAILY #7 tablet 01/27/19 - Allergies Allergies/Adverse Reactions: Allergies Allergy/AdvReac Type Severity Reaction Status Date / Time No Known Drug Allergies Allergy Verified 01/27/19 08:37 - Social History Does the pt smoke?: No Smoking Status: Never smoker Does the pt drink ETOH?: No Does the pt have substance abuse?: No - Immunizations Immunizations are current?: No - POLST Patient has POLST: No POLST Status: Full Code PD ED PE NORMAL - Vitals Vital signs reviewed: Yes - General General: Alert and oriented X 3, No acute distress, Well developed/nourished - HEENT HEENT: Pharynx benign - Neck Neck: Supple, no meningeal sign, No adenopathy - Cardiac Cardiac: RRR, No murmur - Respiratory Respiratory: Clear bilaterally - Abdomen Abdomen: Soft, Non tender - Derm Derm: Normal color, Warm and dry - Extremities Extremities: Normal ROM s pain, No edema, No calf tenderness / cord - Neuro Neuro: Alert and oriented X 3, No motor deficit, Normal speech Results - Vitals Vitals: Vital Signs - 24 hr 01/27/19 08:32 Temperature 36.7 C Heart Rate 81 Respiratory 20 Rate Blood Pressure 126/93 H O2 Saturation 96 Oxygen O2 Source Room air - Labs Labs: Laboratory Tests 01/27/19 10:10 Whole Blood INR 2.1 H - Rads (name of study) chest xray Radiology: Prelim report reviewed, See rad report (no infiltrates) PD MEDICAL DECISION MAKING - ED course Complexity details: reviewed results, considered differential, d/w patient Departure - Departure Disposition: 01 Home, Self Care Clinical Impression: Upper respiratory infection Qualifiers: URI type: unspecified URI Qualified Code(s): J06.9 - Acute upper respiratory infection, unspecified Condition: Stable Record reviewed to determine appropriate education?: Yes Instructions: ED Upper Resp Infec Abx Tx Follow-Up: Keiko Peres MD [Primary Care Provider] - Prescriptions: Albuterol Sulf [Ventolin Hfa Inhaler] 1 - 2 puffs INH Q4HR PRN #1 inhaler PRN Reason: Shortness Of Air/Wheezing Cephalexin [Keflex] 500 mg PO TID #21 capsule dexAMETHasone [Decadron] 4 mg PO DAILY #7 tablet Comments: Cephalexin antibiotic for a week as directed. Decadron steroid for inflammation of the bronchials daily for a week as well. Use albuterol inhaler 2 puffs 4 times a day to help with breathing and cough. Continue the benzo notate for cough suppression as you previously had been prescribed. Recheck if not improving over the next several days to a week. Discharge Date/Time: 01/27/19 10:20
--- NOTE | 2019-01-27 09:16 | XRAY Report ---
Reason: cough, congestion x 3 weeks Procedure Date: 01/27/2019 Accession Number: [id number] / [id number] Procedure: XR - Chest 2 View X-Ray CPT Code: 66375 Final Report FULL RESULT: EXAM: CHEST RADIOGRAPHY EXAM DATE: 01/27/2019 08:52 AM. CLINICAL HISTORY: Cough, congestion x 3 weeks. COMPARISON: CHEST 1 VIEW 02/08/2018 2:15 PM. TECHNIQUE: 2 views. FINDINGS: Lungs/Pleura: No focal opacities evident. No pleural effusion. No pneumothorax. Normal volumes. No interstitial edema. Mediastinum: Mildly prominent cardiac silhouette. Other: None. IMPRESSION: Mild cardiomegaly. RADIA
[2019-01-27] MEDS ORDERED: cephALEXin 250 MG CAPSULE PO STA (09:57)
[2019-01-27] MEDS ORDERED: DEXAMETHASONE 10 MG/ML VIAL PO STA (09:57)
[2019-01-27] MEDS ORDERED: CHERRY SYRUP 10 ML UDC PO ONE (09:57)
== END 2019-01-27 10:20 | disposition home or self-care (01) ==
LOC: ED 08:24
DX: J06.9 Acute upper respiratory infection, unspecified (principal); I10 Essential (primary) hypertension; I48.91 Unspecified atrial fibrillation; Z79.01 Long term (current) use of anticoagulants
CPT/HCPCS: 71046; 85610; 99283; 99284; A9270

== ENCOUNTER 2019-03-15 09:56 | Outpatient (CLI) | payer MEDICARE, MEDICAID | END 2019-03-15 09:57 | disposition home or self-care (01) | LOC: LAB 09:56 | PROVIDERS: ATTEND Family Medicine | DX: Z79.01 Long term (current) use of anticoagulants (principal) | CPT/HCPCS: 85610 ==

== ENCOUNTER 2019-03-25 10:11 | Outpatient (CLI) | payer MEDICARE, MEDICAID | END 2019-03-25 10:12 | disposition home or self-care (01) | LOC: LAB 10:11 | PROVIDERS: ATTEND Family Medicine | DX: Z79.01 Long term (current) use of anticoagulants (principal) | CPT/HCPCS: 85610 ==

== ENCOUNTER 2019-06-24 10:42 | Outpatient (CLI) | payer MEDICARE, MEDICAID | END 2019-06-24 10:43 | disposition home or self-care (01) | LOC: LAB 10:42 | PROVIDERS: ATTEND Family Medicine | DX: Z79.01 Long term (current) use of anticoagulants (principal) | CPT/HCPCS: 85610 ==

== ENCOUNTER 2019-08-19 10:21 | Outpatient (CLI) | payer MEDICARE, MEDICAID | END 2019-08-19 10:22 | disposition home or self-care (01) | LOC: LAB 10:21 | PROVIDERS: ATTEND Family Medicine | DX: Z79.01 Long term (current) use of anticoagulants (principal) | CPT/HCPCS: 85610 ==

== ENCOUNTER 2019-11-29 14:46 | Outpatient (CLI) | payer MEDICARE, MEDICAID ==
--- NOTE | 2019-11-29 17:05 | XRAY Report ---
PROCEDURE: Cervical Spine 2 View INDICATIONS: NECK PAIN TECHNIQUE: 3 view(s) of the cervical spine were acquired. COMPARISON: None. FINDINGS: Bones: No fractures or dislocations to the C7-T1 level. The lateral masses of C1 appear intact on t he odontoid view. No suspicious bony lesions. There is severe disc space narrowing at C3-4 C5-6, C6 -7. Trace anterolisthesis is present at C4 on C5, trace retrolisthesis of C5 on C6. Bridging anterior osteophytes are noted C5-6 with nonbridging osteophytes at C6 and C7. Multilevel uncovertebral hyper trophy is present. Soft tissues: No prevertebral soft tissue swelling. 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 Reviewed by: Aracelis Johnston MD on 11/29/2019 5:04 PM PDT Approved by: Aracelis Johnston MD on 11/29/2019 5:04 PM PDT Station ID: [id number]
== END 2019-11-29 14:47 | disposition home or self-care (01) ==
LOC: DI 14:46
PROVIDERS: ATTEND Family Medicine
DX: M47.812 Spondylosis without myelopathy or radiculopathy, cervical region (principal)
CPT/HCPCS: 72040

== ENCOUNTER 2019-12-13 13:55 | Outpatient (CLI) | payer MEDICARE, MEDICAID | END 2019-12-13 13:56 | disposition home or self-care (01) | LOC: LAB 13:55 | PROVIDERS: ATTEND Family Medicine | DX: Z79.01 Long term (current) use of anticoagulants (principal) | CPT/HCPCS: 85610 ==

== ENCOUNTER 2021-07-27 09:07 | Emergency (ER) | payer MEDICARE, MEDICAID ==
[2021-07-27] MEDS ORDERED: OXYMETAZOLINE HCL 100 SPRAYS BOTTLE NAS STA (09:17)
--- NOTE | 2021-07-27 09:27 | ED Physician Documentation ---
PD HPI HEENT - Stated complaint Stated Complaint: NOSE BLEED - History obtained from History obtained from: Patient - History of Present Illness Timing - onset: How many days ago (4) Timing - duration: Minutes Timing - details: Abrupt onset (has had URI with some nasal congestion and nose blowing. Had nosebleed right side 4 days ago and states it starts bleeding periodically since, for few minutes until pinched. Bled again this morning.), Intermittant Location: Nose (right anterior nose. No blood down back of throat.) Associated symptoms: Congestion, Rhinorrhea, Other (he does take anticoagulant.). No: Fever, Swollen nodes, Facial swelling Similar symptoms before: Has not had sx before Review of Systems Constitutional: denies: Fever, Chills Nose: reports: Rhinorrhea / runny nose, Congestion, Epistaxis Throat: denies: Sore throat Cardiac: denies: Chest pain / pressure Respiratory: denies: Cough Neurologic: denies: Generalized weakness, Focal weakness PD PAST MEDICAL HISTORY - Past Medical History Cardiovascular: Hypertension, High cholesterol, Atrial fibrillation Respiratory: Pneumonia Endocrine/Autoimmune: None GI: GERD : Other HEENT: None Psych: None Musculoskeletal: None Derm: None - Past Surgical History Past Surgical History: Yes HEENT: Tonsil/Adenoidectomy - Present Medications Home Medications: Ambulatory Orders Medication Instructions Recorded Confirmed Warfarin [Coumadin] 5 mg PO MOFR@1400 08/24/16 07/27/21 Magnesium Oxide [Mag Ox] 400 mg PO DAILY #15 tablet 02/08/18 07/27/21 carvediloL [Carvedilol] 12.5 mg PO BID #30 tablet 02/08/18 07/27/21 Albuterol Sulf [Ventolin Hfa 1 - 2 puffs INH Q4HR PRN #1 inhaler 01/27/19 07/27/21 Inhaler] Losartan Potassium 12.5 mg PO DAILY 01/27/19 07/27/21 Spironolactone [Aldactone] 12.5 mg PO DAILY 01/27/19 07/27/21 - Allergies Allergies/Adverse Reactions: Allergies Allergy/AdvReac Type Severity Reaction Status Date / Time No Known Drug Allergies Allergy Verified 07/27/21 09:33 - Social History Does the pt smoke?: No Smoking Status: Never smoker Does the pt drink ETOH?: No Does the pt have substance abuse?: No - Immunizations Immunizations are current?: No - POLST Patient has POLST: No POLST Status: Full Code PD ED PE NORMAL - Vitals Vital signs reviewed: Yes - General General: Alert and oriented X 3, Well developed/nourished, Other - HEENT HEENT: Ears normal, Moist mucous membranes, Pharynx benign, Other (right anterio nasal medial wall with focal area of inflammation and raised point of vessel. Minimal oozing blood. No erosions. ) - Neck Neck: Supple, no meningeal sign, No adenopathy Results - Vitals Vitals: Vital Signs - 24 hr 07/27/21 07/27/21 09:31 11:09 Temperature 36.4 C L Heart Rate 90 63 Respiratory 16 18 Rate Blood Pressure 115/52 L 91/60 O2 Saturation 98 99 Oxygen O2 Source Room air Procedures - Epistaxis Site: Right, Anterior Preparation: Afrin, Lidocaine, Clamp / pressure applied Treatment: Silver Nitrate, Packing inserted Other: Observed - no bleeding, Pt tolerated well, O2 sat WNL PD MEDICAL DECISION MAKING - ED course Complexity details: considered differential (appears wall irritation and focal bleeding. Presume relates to recent URI and nose blowing. Bleeding stopped with afrin and gauze. ), d/w patient Departure - Departure Disposition: 01 Home, Self Care Clinical Impression: Acute anterior epistaxis, Anticoagulant long-term use Condition: Stable Record reviewed to determine appropriate education?: Yes Instructions: ED Nosebleed Follow-Up: Keiko Peres MD [Primary Care Provider] - Comments: Continue usual medications. Leave the foam packing in the right nostril through the day today into this evening. You can remove it later or before bed. This keeps the caustic/cautery chemical in the intended area and tries to prevent the bleeding. If you to get recurrent bleeding through the day, pinch your nostril and spray it with the Afrin spray. Otherwise you can spray the foam packing every few hours through the day to help keep it moisturized. You should not have any further bleeding problems from that spot. Follow-up or return if significant bleeding again. Discharge Date/Time: 07/27/21 11:11
[2021-07-27] MEDS ORDERED: SILVER NITRATE APPLICATOR TOP STA (10:11)
[2021-07-27 11:10] VITALS: BP 91/60
== END 2021-07-27 11:11 | disposition home or self-care (01) ==
LOC: ED 09:07
DX: R04.0 Epistaxis (principal); I10 Essential (primary) hypertension; I48.91 Unspecified atrial fibrillation; Z79.01 Long term (current) use of anticoagulants
CPT/HCPCS: 30901; 99282; A9270

== ENCOUNTER 2022-04-15 07:37 | Emergency (ER) | payer MEDICARE, MEDICAID ==
[2022-04-15 07:50] VITALS: BP 109/70
--- NOTE | 2022-04-15 08:27 | XRAY Report ---
PROCEDURE: Foot 3 View LT INDICATIONS: Trauma TECHNIQUE: 3 views of the foot were acquired. COMPARISON: None FINDINGS: Bones: No obvious fractures. There is a subluxation at the DIP joint of the second digit, of uncertai n chronicity. No suspicious bony lesions. Soft tissues: No tibiotalar joint effusion. Achilles tendon appears normal. Small vessel calcifica tions are typically seen in diabetics. IMPRESSION: Second toe DIP subluxation, but uncertain chronicity. Suggest clinical correlation for presence or ab sence of acute symptomatology in this location. Reviewed by: Patrick Harden MD on 04/15/2022 8:26 AM PST Approved by: Patrick Harden MD on 04/15/2022 8:26 AM PST Station ID: [id number]
--- NOTE | 2022-04-15 08:45 | ED Physician Documentation ---
PD HPI LOWER EXT INJURY - Stated complaint Stated Complaint: LT FT TOE SWOLLEN - Chief complaint Chief Complaint: Ext Problem - History obtained from History obtained from: Patient - History of Present Illness PD HPI LOW EXT INJURY LOCATION: Left, Toe (middle toe PIP joint dorsally.) Type of injury: No: Fall, Twist, Blunt / blow Where injury occurred: Home Timing - onset: How many days ago (4) Timing - duration: Days (4) Timing - details: Gradual onset, Still present Worsened by: Moving, Palpating Associated symptoms: Swelling, Discolored (red). No: Weakness, Numbness Similar symptoms before: Has not had sx before Recently seen: Not recently seen Review of Systems Constitutional: denies: Fever, Chills Nose: denies: Rhinorrhea / runny nose, Congestion Throat: denies: Sore throat Respiratory: denies: Cough Skin: denies: Abrasion (s), Laceration (s) Neurologic: denies: Focal weakness, Numbness PD PAST MEDICAL HISTORY - Past Medical History Cardiovascular: Hypertension, High cholesterol, Atrial fibrillation Respiratory: Pneumonia Endocrine/Autoimmune: None GI: GERD : Other HEENT: None Psych: None Musculoskeletal: None, Other (denies gout history. ) Derm: None - Past Surgical History Past Surgical History: Yes HEENT: Tonsil/Adenoidectomy - Present Medications Home Medications: Ambulatory Orders Medication Instructions Recorded Confirmed Warfarin [Coumadin] 5 mg PO MOFR@1400 08/24/16 07/27/21 Magnesium Oxide [Mag Ox] 400 mg PO DAILY #15 tablet 02/08/18 07/27/21 carvediloL [Carvedilol] 12.5 mg PO BID #30 tablet 02/08/18 07/27/21 Albuterol Sulf [Ventolin Hfa 1 - 2 puffs INH Q4HR PRN #1 inhaler 01/27/19 Inhaler] Losartan Potassium 12.5 mg PO DAILY 01/27/19 07/27/21 Spironolactone [Aldactone] 12.5 mg PO DAILY 01/27/19 07/27/21 HYDROcod/ACETAM 5/325 [[place] 5/325] 1 ea PO Q6H PRN #14 tablet 04/15/22 cephALEXin [Keflex] 500 mg PO TID #20 cap 04/15/22 dexAMETHasone [Decadron] 4 mg PO DAILY #5 tablet 04/15/22 - Allergies Allergies/Adverse Reactions: Allergies Allergy/AdvReac Type Severity Reaction Status Date / Time No Known Drug Allergies Allergy Verified 04/15/22 07:51 - Social History Does the pt smoke?: No Smoking Status: Never smoker Does the pt drink ETOH?: No Does the pt have substance abuse?: No - Immunizations Immunizations are current?: No - POLST Patient has POLST: No POLST Status: Full Code PD ED PE NORMAL - Vitals Vital signs reviewed: Yes - General General: Alert and oriented X 3, No acute distress, Well developed/nourished - Derm Derm: Normal color, Warm and dry - Extremities Extremities: Other (dorsum middle toe PIP joint iwth redness and marked tenderness. No skin lesions/sores. No drainage. ) - Neuro Neuro: Alert and oriented X 3, No motor deficit, No sensory deficit, Normal speech Results - Vitals Vitals: Oxygen O2 Source Room air - Rads (name of study) toe xray Radiology: Prelim report reviewed (no FB nor fractures), See rad report PD Medical Decision Making - ED course Complexity details: considered differential (could be infectious though gout would be good Dx as well. Can treat for both. ), d/w patient Departure - Departure Disposition: 01 Home, Self Care Clinical Impression: Toe pain, left, Swelling of toe of left foot Condition: Stable Record reviewed to determine appropriate education?: Yes Follow-Up: Keiko Peres MD [Primary Care Provider] - Prescriptions: dexAMETHasone [Decadron] 4 mg PO DAILY #5 tablet cephALEXin [Keflex] 500 mg PO TID #20 cap HYDROcod/ACETAM 5/325 [[place] 5/325] 1 ea PO Q6H PRN #14 tablet PRN Reason: Pain Comments: This certainly is possible to be a infection given the redness and swelling and tenderness. We can treat her with cephalexin antibiotic 3 times daily for the next 5 to 7 days. However other considerations would be more of an inflammatory process such as gout. For that I would also add Decadron steroid anti-inflammatory. This will allow some improvement in the inflammation without interfering with your blood thinners or stomach medicine so much. Add Tylenol every 4-6 hours if needed for pain or hydrocodone/acetaminophen if needed for worse pain. I would anticipate improvement over the next 2 to 3 days and resolved by 3 to 5 days. Recheck if not better in that timeframe or if it is worsening. I sent your prescriptions to [facility] pharmacy in [place]. I am prescribing a short course of narcotic pain medication for you. These are potentially dangerous and addictive medications that should be used carefully. These medications may constipate you. Take an [id number] stool softener such as docusate twice daily with plenty of water while taking these medications. If you go 24 hours without a bowel movement, take [id number] MiraLAX, per package instructions. Do not drink or drive while taking these medications. If you received narcotic or sedating medications while in the emergency department do not drive for 24 hours. Store this medication in a safe, secure place and out of reach of children. It is a violation of federal law to give or sell this medication to another person or to use in a manner other than prescribed. The ED will not refill narcotic prescriptions, including prescriptions lost or stolen. You can dispose of unwanted medications at the [facility] or at several pharmacies such as [facility]. Discharge Date/Time: 04/15/22 09:19
[2022-04-15] MEDS ORDERED: cephALEXin 250 MG CAPSULE PO STA (08:59)
[2022-04-15] MEDS ORDERED: DEXAMETHASONE 10 MG/ML VIAL PO STA (08:59)
[2022-04-15] MEDS ORDERED: CHERRY SYRUP 10 ML UDC PO ONE (08:59)
[2022-04-15] MEDS ORDERED: ACETAMINOPHEN 325 MG TABLET PO STA (08:59)
== END 2022-04-15 09:19 | disposition home or self-care (01) ==
LOC: ED 07:37
DX: M79.675 Pain in left toe(s) (principal); R22.42 Localized swelling, mass and lump, left lower limb
CPT/HCPCS: 73630; 99283; A9270

== ENCOUNTER 2023-04-29 06:57 | Emergency (ER) | payer MEDICARE, MEDICAID ==
[2023-04-29 07:20] VITALS: BP 90/69; O2SAT 99
--- NOTE | 2023-04-29 07:49 | ED Physician Documentation ---
History of Present Illness - Stated complaint Stated Complaint: L TOE PX - Chief complaint Chief Complaint: Ext Problem - History obtained from History obtained from: Patient, Family - Additonal information Additional information: The patient comes to the emergency department with chief complaint of left toe pain involving the great toe and second toe. He states it started a couple days ago. He has noticed some mild swelling over the first MTP joint and states it is painful. He denies any fevers or chills. No redness. He can walk, But with a limp. He states he has had this happen a couple of times before, with the first time being about 6 years ago. He states he was given "antibiotics" and it got better. The patient does not recognize the term gout is anything he has been diagnosed with before. He states that when this happened to him before, he did not have any redness or notable swelling of the toes, but that they look mostly normal. He is not a diabetic. He states that otherwise, his medical conditions have been stable lately and he is felt he is in his normal state of health. No other complaints at this time. PD PAST MEDICAL HISTORY - Past Medical History Past Medical History: Yes Cardiovascular: Hypertension, High cholesterol, Atrial fibrillation Respiratory: Pneumonia Neuro: None Endocrine/Autoimmune: None GI: GERD : Other HEENT: None Psych: None Musculoskeletal: None, Other Derm: None - Past Surgical History Past Surgical History: Yes HEENT: Tonsil/Adenoidectomy - Present Medications Home Medications: Ambulatory Orders Medication Instructions Recorded Confirmed carvediloL [Carvedilol] 12.5 mg PO BID #30 tablet 02/08/18 04/29/23 Losartan Potassium 12.5 mg PO DAILY 01/27/19 04/29/23 Spironolactone [Aldactone] 12.5 mg PO DAILY 01/27/19 04/29/23 Clotrimazole 1% Cream [Lotrimin 1% 1 applic TOP BID 04/29/23 04/29/23 Cream] Indomethacin [Indocin] 25 mg PO BIDWM #10 cap 04/29/23 Pantoprazole [Protonix] 40 mg PO DAILY 04/29/23 04/29/23 Rivaroxaban [Xarelto] 20 mg PO DAILY PM 04/29/23 04/29/23 predniSONE [Deltasone] 10 mg PO [id number] #42 tab 04/29/23 - Allergies Allergies/Adverse Reactions: Allergies Allergy/AdvReac Type Severity Reaction Status Date / Time No Known Drug Allergies Allergy Verified 04/29/23 07:07 - Social History Does the pt smoke?: No Smoking Status: Never smoker Does the pt drink ETOH?: No Does the pt have substance abuse?: No - Immunizations Immunizations are current?: Yes - POLST Patient has POLST: No POLST Status: Full Code PD ED PE NORMAL - Vitals Vital signs reviewed: Yes - General General: No acute distress, Well developed/nourished, Other (Alert, grossly oriented.) - HEENT HEENT: Atraumatic, EOMI, Moist mucous membranes - Neck Neck: Supple, no meningeal sign - Cardiac Cardiac: Strong equal pulses - Respiratory Respiratory: No respiratory distress - Derm Derm: Warm and dry, No rash, Other (Very, very slight erythema over the first and second MTP joints on the left. No streaking. No induration or fluctuance. Normal appearance of the toes distal to the MTP joints. Onychomycosis especially involving great toenail but to some degree all toenails. Hammer toe noted second toe IP joint.) - Extremities Extremities: No deformity, Other (Mild edema overlying the first and second MTP joints on the left. ) - Neuro Neuro: Other (Grossly intact) - Psych Psych: Normal mood, Normal affect Results - Vitals Vitals: Vital Signs - 24 hr 04/29/23 07:07 Temperature 36 C L Heart Rate 98 Respiratory 16 Rate Blood Pressure 90/69 O2 Saturation 99 Oxygen O2 Source Room air PD Medical Decision Making - ED course Complexity details: considered differential, d/w patient, d/w family ED course: I discussed with the patient that he does not appear to have cellulitis and I actually suspect gout, based on his history and the otherwise normal appearance of Soft tissue of his left first and second toes. He has evidence of some inflammation overlying the first and second MTP joints, but without induration, erythema, streaking, or edema anywhere else, and this would be consistent with gout. I have discussed treatment with the patient. He also has concerns about his onychomycosis and his hammertoe and I have given him contact information for Dr. Mars of podiatry in [place] for follow-up for all of these foot issues. I have sent a prescription to the pharmacy of his choice. We have discussed the usual indications for return. Departure - Departure Disposition: 01 Home, Self Care Clinical Impression: Onychomycosis, Hammer toe of left foot Gout Qualifiers: Gout site: toe Gout etiology: unspecified cause Chronicity: acute Laterality: left Qualified Code(s): M10.9 - Gout, unspecified Condition: Stable Instructions: ED Arthritis Gout, Gout Eat Prevent, ED Nail Infec Fungal, Mallet Hammer Claw Toes Follow-Up: Richi Mars DPM [Physician No Access] - Prescriptions: predniSONE [Deltasone] 10 mg PO [id number] #42 tab Indomethacin [Indocin] 25 mg PO BIDWM #10 cap Print Language: Portuguese Comments: Your symptoms are most consistent with gout, a condition in which crystallized molecules are deposited within the joints and tissues of the toes and feet. Usually, this condition will cause a flareup from time to time, but the flareup will ultimately go down on its own. You have been prescribed a couple of medications for this and the prescriptions have been electronically transmitted to the [facility] pharmacy in [place]. You should continue your regular medications and plan to follow-up with your doctor as needed. You have been given the contact information also for the podiatry clinic in [place], so that you can see the foot tender. You can talk to him about the fungal infection in your toenails as well as the hammer toe that you have and he can talk to you about your options for getting these taken care of. We do not start the medication for the fungal infection in the toenails here in the emergency department, due to its effect on the liver and the need for close monitoring with laboratory studies.
--- NOTE | 2023-04-29 08:23 | XRAY Report ---
PROCEDURE: Toe(s) 2+V LT INDICATIONS: pain TECHNIQUE: 3 views of the second toe(s) acquired. COMPARISON: 04/15/2022 FINDINGS: Bones: Persistent lateral subluxation of the second DIP, similar compared to 04/15/2022. No new displac ed fracture. Mild scattered degenerative changes. Soft tissues: Vascular calcifications. IMPRESSION: Persistent lateral subluxation of the second DIP. Reviewed by: Joaquin Storm MD on 04/29/2023 8:22 AM PST Approved by: Joaquin Storm MD on 04/29/2023 8:22 AM PST Station ID: [id number]
== END 2023-04-29 08:02 | disposition home or self-care (01) ==
LOC: ED 06:57
DX: B35.1 Tinea unguium (principal); M20.42 Other hammer toe(s) (acquired), left foot; M10.9 Gout, unspecified; I10 Essential (primary) hypertension; E78.00 Pure hypercholesterolemia, unspecified; I48.91 Unspecified atrial fibrillation; Z79.01 Long term (current) use of anticoagulants; Z79.899 Other long term (current) drug therapy
CPT/HCPCS: 73660; 99283

== ENCOUNTER 2023-05-06 03:03 | Outpatient (CLI) | payer MEDICARE, MEDICAID | END 2023-05-06 03:04 | disposition critical access hospital (66) | LOC: EMS 03:03 | DX: R41.82 Altered mental status, unspecified (principal); R47.81 Slurred speech; R46.4 Slowness and poor responsiveness; R29.810 Facial weakness; S00.81XA Abrasion of other part of head, initial encounter; W18.39XA Other fall on same level, initial encounter; Y92.009 Unspecified place in unspecified non-institutional (private) residence as the place of occurrence of the external cause | CPT/HCPCS: A0425; A0429 ==

== ENCOUNTER 2023-05-06 03:10 | Emergency (ER) | payer MEDICARE, MEDICAID ==
--- NOTE | 2023-05-06 03:23 | ED Physician Documentation ---
PD HPI HEAD INJURY - Stated complaint Stated Complaint: EXPRESSIVE APHASIA - Chief complaint Chief Complaint: Trauma Hd/Nk - History obtained from History obtained from: Patient, Family (), EMS - History of Present Illness Mechanism of head injury: Fell Where head injury occurred: Home Timing - onset: Today Quality of pain: Dull Associated symptoms: LOC, AMS, Other (difficulty with pronunciation is mild). No: Nausea / vomiting, Neck pain, Paresthesias, Seizures, Ear drainage, Nasal drainage Symptoms improve with: Rest Contributing factors: Anticoagulated (on xaralto for afib) Similar symptoms before: Has not had sx before Recently seen: Emergency Dept (Seen for gout in the toes last week.) - Additional information Additional information: 82-year-old Kip mtz has history of atrial fibrillation he is on Xarelto. This evening he got up out of bed to go to the bathroom and fell striking his head. His indicates that he was unconscious for about 5 minutes. She called medics medics arrived the patient was conscious and complaining of some difficulty with pronunciation of words. He had nonfocal exam and negative FAST exam is transported to the hospital. The patient denies any current illness he does have a cough. Review of Systems Constitutional: denies: Fever Eyes: denies: Decreased vision Ears: denies: Ear pain Nose: denies: Rhinorrhea / runny nose, Congestion Throat: denies: Sore throat Cardiac: denies: Chest pain / pressure, Palpitations Respiratory: reports: Cough. denies: Dyspnea GI: denies: Vomiting, Constipation, Diarrhea : denies: Dysuria, Frequency Skin: denies: Rash, Lesions Musculoskeletal: denies: Neck pain, Back pain, Extremity pain PD PAST MEDICAL HISTORY - Past Medical History Cardiovascular: Hypertension, High cholesterol, Atrial fibrillation Respiratory: Pneumonia Neuro: None Endocrine/Autoimmune: None GI: GERD : Other HEENT: None Psych: None Musculoskeletal: None, Other Derm: None - Past Surgical History Past Surgical History: Yes HEENT: Tonsil/Adenoidectomy - Present Medications Home Medications: Ambulatory Orders Medication Instructions Recorded Confirmed carvediloL [Carvedilol] 12.5 mg PO BID #30 tablet 02/08/18 04/29/23 Losartan Potassium 12.5 mg PO DAILY 01/27/19 04/29/23 Spironolactone [Aldactone] 12.5 mg PO DAILY 01/27/19 04/29/23 Clotrimazole 1% Cream [Lotrimin 1% 1 applic TOP BID 04/29/23 04/29/23 Cream] Indomethacin [Indocin] 25 mg PO BIDWM #10 cap 04/29/23 Pantoprazole [Protonix] 40 mg PO DAILY 04/29/23 04/29/23 Rivaroxaban [Xarelto] 20 mg PO DAILY PM 04/29/23 04/29/23 predniSONE [Deltasone] 10 mg PO [id number] #42 tab 04/29/23 Amox/Clav 875/125 [Augmentin] 1 each PO Q12H #20 tablet 05/06/23 Azithromycin [Zithromax] 250 mg PO DAILY #6 tablet 05/06/23 - Allergies Allergies/Adverse Reactions: Allergies Allergy/AdvReac Type Severity Reaction Status Date / Time No Known Drug Allergies Allergy Verified 05/06/23 03:20 - Social History Does the pt smoke?: No Smoking Status: Never smoker Does the pt drink ETOH?: No Does the pt have substance abuse?: No - Immunizations Immunizations are current?: Yes - POLST Patient has POLST: No POLST Status: Full Code PD ED PE NORMAL - Vitals Vital signs reviewed: Yes (Hypertensive.) - General General: Alert and oriented X 3, No acute distress, Well developed/nourished - HEENT HEENT: PERRL, EOMI, Ears normal, Other (There is a red jazmin to the occiput on the left. This is "normal" according to the . No pain to palpate) - Neck Neck: Supple, no meningeal sign, No bony TTP - Cardiac Cardiac: No murmur, Other (irregularly irregular rate and rhythm ) - Respiratory Respiratory: No respiratory distress, Other (rhonchi in both bases worse on the right. ) - Abdomen Abdomen: Soft, Non tender - Back Back: No CVA TTP, No spinal TTP - Derm Derm: Normal color, Warm and dry, No rash - Extremities Extremities: No deformity, No edema - Neuro Neuro: Alert and oriented X 3, advertising photographer 2-12 intact, No motor deficit, No sensory deficit, Normal speech Eye Opening: Spontaneous Motor: Obeys Commands Verbal: Oriented GCS Score: 15 - Psych Psych: Normal mood, Normal affect Results - Vitals Vitals: Vital Signs - 24 hr 05/06/23 05/06/23 05/06/23 03:11 03:54 04:23 Temperature 36.0 C L Heart Rate 89 78 98 Respiratory 24 20 20 Rate Blood Pressure 144/91 H 129/79 130/94 H O2 Saturation 99 98 98 05/06/23 05:41 Temperature Heart Rate 90 Respiratory 21 Rate Blood Pressure 119/95 H O2 Saturation 99 Oxygen O2 Source Room air - EKG (time done) 0314 EKG releavant findings:: EKG personally interpreted by author of this note. Relevant findings are: Rate: Rate (enter#) (96) Rhythm: Atrial fibrillation Intervals: LBBB Compare to prior EKG: Changed from prior EKG ([facility] 02-08-2018 rate is slower) Computer interpretation: Agree with computer - Labs Labs: Laboratory Tests 05/06/23 05/06/23 05/06/23 03:30 03:43 03:43 WBC 6.9 RBC 4.64 L Hgb 13.3 L Hct 43.5 MCV 93.8 MCH 28.7 MCHC 30.6 L RDW 13.8 Plt Count 181 MPV 12.7 H Neut # (Auto) 5.9 Lymph # (Auto) 0.7 L [place] # (Auto) 0.3 Eos # (Auto) 0.0 Baso # (Auto) 0.0 Absolute Nucleated RBC 0.02 Nucleated RBC % 0.3 PT 16.0 H INR 1.5 H APTT 30.2 Sodium Potassium Chloride Carbon Dioxide Anion Gap BUN Creatinine Estimated GFR (MDRD) Glucose Calcium Total Bilirubin AST ALT Alkaline Phosphatase B-Natriuretic Peptide Total Protein Albumin Globulin Albumin/Globulin Ratio Lipase Urine Color Urine Clarity Urine pH Ur Specific [place] Urine Protein Urine Glucose (UA) Urine Ketones Urine Occult Blood Urine Nitrite Urine Bilirubin Urine Urobilinogen Ur Leukocyte Esterase Urine RBC Urine WBC Ur Squamous Epith Cells Urine Bacteria Urine Casts Ur Microscopic Review Urine Culture Comments Nasal Adenovirus (PCR) NOT DETECTED Nasal B. parapertussis DNA (PCR) NOT DETECTED Nasal Coronavir 229E PCR NOT DETECTED Nasal Coronavir HKU1 PCR NOT DETECTED Nasal Coronavir NL63 PCR NOT DETECTED Nasal Coronavir OC43 PCR NOT DETECTED Nasal Enterovir/Rhinovir PCR NOT DETECTED Nasal Influenza B PCR NOT DETECTED Nasal Influenza A PCR NOT DETECTED Nasal Parainfluen 1 PCR NOT DETECTED Nasal Parainfluen 2 PCR NOT DETECTED Nasal Parainfluen 3 PCR NOT DETECTED Nasal Parainfluen 4 PCR NOT DETECTED Nasal RSV (PCR) NOT DETECTED Nasal B.pertussis DNA PCR NOT DETECTED Nasal C.pneumoniae (PCR) NOT DETECTED Diaz Human Metapneumo PCR NOT DETECTED Nasal M.pneumoniae (PCR) NOT DETECTED Nasal SARS-CoV-2 (PCR) DETECTED A 05/06/23 05/06/23 05/06/23 03:43 04:00 04:21 WBC RBC Hgb Hct MCV MCH MCHC RDW Plt Count MPV Neut # (Auto) Lymph # (Auto) [place] # (Auto) Eos # (Auto) Baso # (Auto) Absolute Nucleated RBC Nucleated RBC % PT INR APTT Sodium 136 Potassium 4.6 H Chloride 103 Carbon Dioxide 23 Anion Gap 10.0 BUN 26 H Creatinine 1.0 Estimated GFR (MDRD) 72 L Glucose 141 H Calcium 9.7 Total Bilirubin 0.6 AST 53 H ALT 130 H Alkaline Phosphatase 96 B-Natriuretic Peptide 926 H Total Protein 6.9 Albumin 3.9 Globulin 3.0 Albumin/Globulin Ratio 1.3 Lipase 45 Urine Color YELLOW Urine Clarity CLEAR Urine pH 6.5 Ur Specific [place] 1.015 Urine Protein 30 H Urine Glucose (UA) NEGATIVE Urine Ketones NEGATIVE Urine Occult Blood NEGATIVE Urine Nitrite NEGATIVE Urine Bilirubin NEGATIVE Urine Urobilinogen 0.2 (NORMAL) Ur Leukocyte Esterase NEGATIVE Urine RBC 0-5 Urine WBC 0-3 Ur Squamous Epith Cells RARE Squamous Urine Bacteria Rare Urine Casts 0-2 Granular Casts Ur Microscopic Review INDICATED Urine Culture Comments NOT INDICATED Nasal Adenovirus (PCR) Nasal B. parapertussis DNA (PCR) Nasal Coronavir 229E PCR Nasal Coronavir HKU1 PCR Nasal Coronavir NL63 PCR Nasal Coronavir OC43 PCR Nasal Enterovir/Rhinovir PCR Nasal Influenza B PCR Nasal Influenza A PCR Nasal Parainfluen 1 PCR Nasal Parainfluen 2 PCR Nasal Parainfluen 3 PCR Nasal Parainfluen 4 PCR Nasal RSV (PCR) Nasal B.pertussis DNA PCR Nasal C.pneumoniae (PCR) Diaz Human Metapneumo PCR Nasal M.pneumoniae (PCR) Nasal SARS-CoV-2 (PCR) - Rads (name of study) chest Relevant Findings:: Prelim report reviewed (Impression: 1. Note suspect cardiomegaly and vascular congestion, possible mild pulmonary edema. Possible right lower lobe pneumonia versus pneumonitis), EMP independent interpretation of test CT head without Relevant Findings:: Prelim report reviewed (Impression: 1. No acute intracranial abnormality demonstrated. No evidence of hemorrhage. Generalized involutional changes of an old right MCA territory infarct are noted. Small low-density focus in the right mary is possibly an old lacunar infarct. Mild mucoperiosteal thickening of the ethmoid), EMP independent interpretation of test CT cervical spine Relevant Findings:: Prelim report reviewed (Impression: 1. Negative CT cervical spine for acute process.), EMP independent interpretation of test Procedures - IVC sono (time) 0320 Bedside IVC sono: IVC measures (cm) (1.81), Euvolemia PD Medical Decision Making - ED course Complexity details: reviewed results, re-evaluated patient, considered differential, d/w patient, d/w family Reviewed Lab Results: We reviewed a complete blood count showing a normal white blood cell count of 6.9 hemoglobin mildly depressed at 13.3 and similar to prior from 5 years ago platelets are normal at 181,000. INR is elevated at 1.5 chemistries show a potassium of 4.6 a BUN of 26. There is mild elevation in the AST and ALT that were not present previously. The patient's chest x-ray demonstrates pneumonia in the right lower lobe Consistent with findings on physical exam with rhonchi in the right base and the patient's thick cough. He also has some evidence of sinusitis on his CT scan. For this reason I am considering the x-ray to demonstrate pneumonia and the patient is treated. He has a normal white blood cell count and normal oxygen saturation and thus appears to have a noncritical pneumonia.He is treated for community-acquired pneumoniaHe also test positive for COVID. He is not a candidate for Paxlovid as he is on Xarelto.The patient does indicate that he is fully immunized and he has had COVID previously which was a mild case. ED course: Jerry presented to the emergency department this morning after having a fall at home and striking his head being on Xarelto. He did have some loss of consciousness associated with that and had some slurring of his speech which has resolved. We evaluated the patient and found on examination that he had some rhonchi in the right base Consistent with the possibility of a pneumonia and this was confirmed with a chest x-ray. He does have a history of congestive heart failure he has a large heart on his chest x-ray he does not appear to be in failure on his chest x-ray and I interrogated his inferior vena cava with POCUS and found that he had a generous vessel that was collapsing. I do not believe the patient is in acute failure. The patient has acute cough and a nasal swab was obtained as well for COVID and this test was positive. The juliana fox has had COVID previously and is immunized. He did not require treatment previously. He is on Xarelto and not eligible for treatment with Paxlovid. Today we are treating pneumonia as a community-acquired pneumonia. He is administered Rocephin and azithromycin as well as dexamethasone. We will place him on a course of azithromycin and Augmentin as an outpatient. Departure - Departure Disposition: 01 Home, Self Care Clinical Impression: COVID Pneumonia Qualifiers: Pneumonia type: due to unspecified organism Laterality: right Lung location: lower lobe of lung Qualified Code(s): J18.9 - Pneumonia, unspecified organism Instructions: ED Pneumonia Adult, COVID-19 [facility] Department Statement Follow-Up: Keiko Peres MD [Physician No Access] - Prescriptions: Amox/Clav 875/125 [Augmentin] 1 each PO Q12H #20 tablet Azithromycin [Zithromax] 250 mg PO DAILY #6 tablet Comments: Jerry, today it looks like you have a pneumonia and we are treating this with antibiotic. In addition there is evidence of a viral infection COVID. The COVID infection will likely be mild as it was before. The medications for treatment of pneumonia [facility] [place]. Forms: PCP List
[2023-05-06 03:53] LABS: HCT - HEMATOCRIT 43.5 % (42.0-52.0); HGB - HEMOGLOBIN 13.3 g/dL (14.0-18.0); LYMPHOCYTES # (AUTO) 0.7 10^3/uL (1.5-3.5); LYMPHOCYTES % (AUTO) 9.8 %; MEAN CORPUSCULAR HEMOGLOBIN 28.7 pg (27.0-31.0); MEAN CORPUSCULAR HGB CONC 30.6 g/dL (32.0-36.0); MEAN CORPUSCULAR VOLUME 93.8 fL (80.0-94.0); MEAN PLATELET VOLUME 12.7 fL (7.4-11.4); MONOCYTES # (AUTO) 0.3 10^3/uL (0.0-1.0); MONOCYTES % (AUTO) 4.5 %; NEUTROPHILS # (AUTO) 5.9 10^3/uL (1.5-6.6); NRBC ABSOLUTE COUNT (AUTO) 0.02 x10^3/uL; NUCLEATED RED BLOOD CELLS AUTO 0.3 /100WBC; PLT - PLATELET COUNT 181 10^3/uL (130-450); RED BLOOD COUNT 4.64 10^6/uL (4.70-6.10); RED CELL DISTRIBUTION WIDTH 13.8 % (12.0-15.0); WHITE BLOOD COUNT 6.9 x10^3/uL (4.8-10.8)
[2023-05-06 04:07] LABS: ALBUMIN 3.9 g/dL (3.2-5.5); ALBUMIN/GLOBULIN RATIO 1.3 (1.0-2.2); BILIRUBIN,TOTAL 0.6 mg/dL (0.2-1.0); CALCIUM 9.7 mg/dL (8.5-10.3); POTASSIUM 4.6 mmol/L (3.5-4.5); TOTAL PROTEIN 6.9 g/dL (6.4-8.9)
[2023-05-06 04:23] LABS: INR 1.5 (0.8-1.2); PARTIAL THROMBOPLASTIN TIME 30.2 secs (24.9-33.3)
[2023-05-06 04:26] LABS: BILIRUBIN,URINE NEGATIVE (NEGATIVE); GLUCOSE, URINE (UA) NEGATIVE (NEGATIVE); KETONES,URINE (UA) NEGATIVE (NEGATIVE); LEUKOCYTE ESTERASE, URINE NEGATIVE (NEGATIVE); NITRITE,URINE NEGATIVE (NEGATIVE); OCCULT BLOOD,URINE NEGATIVE (NEGATIVE); PH,URINE 6.5 PH (5.0-7.5); PROTEIN,URINE 30 mg/dL (NEGATIVE); UROBILINOGEN,URINE 0.2 (NORMAL) E.U./dL (NORMAL)
[2023-05-06 04:32] LABS: CLARITY,URINE CLEAR (CLEAR)
[2023-05-06 04:44] LABS: BACTERIA,URINE Rare /HPF (None Seen); RBC,URINE 0-5 /HPF (0-5); SQUAMOUS EPITHELIAL CELL,UR RARE Squamous (<= Few); WBC,URINE 0-3 /HPF (0-3)
[2023-05-06 04:51] LABS: CORONAVIRUS 229E-RESP PCR NOT DETECTED
[2023-05-06 04:52] LABS: CORONAVIRUS HKU1-RESP PCR NOT DETECTED; CORONAVIRUS NL63-RESP PCR NOT DETECTED; CORONAVIRUS OC43-RESP PCR NOT DETECTED; HUMAN METAPNEUMOVIRUS NOT DETECTED; RHINOVIRUS/ENTEROVIRUS NOT DETECTED; SARS-CoV-2 -RESP PCR PANEL DETECTED
[2023-05-06 04:53] LABS: B. PARAPERTUSSIS- RESP PCR PAN NOT DETECTED; B. PERTUSSIS- RESP PCR PANEL NOT DETECTED; C. PNEUMONIAE- RESP PCR PANEL NOT DETECTED; INFLUENZA A- RESP PCR PANEL NOT DETECTED; INFLUENZA B - RESP PCR PANEL NOT DETECTED; M. PNEUMONIAE- RESP PCR PANEL NOT DETECTED; PARAINFLUENZA VIRUS 1 NOT DETECTED; PARAINFLUENZA VIRUS 2 NOT DETECTED; PARAINFLUENZA VIRUS 3 NOT DETECTED; PARAINFLUENZA VIRUS 4 NOT DETECTED; RSV- RESP PCR PANEL NOT DETECTED
[2023-05-06] MEDS ORDERED: cefTRIAXone 1 GM VIAL ONE (05:10)
[2023-05-06] MEDS: cefTRIAXone 1 GM in SODIUM CHLORIDE 0.9% MINIBAG 100 ML IV STA (05:18)
[2023-05-06] MEDS: AZITHROMYCIN INJ 500 MG in SODIUM CHLORIDE 0.9% 250 ML IV STA (05:20)
[2023-05-06 05:44] VITALS: BP 119/95; O2SAT 99
[2023-05-06] MEDS: DEXAMETHASONE 10 MG/ML VIAL PO STA (05:50)
[2023-05-06] MEDS: CHERRY SYRUP 10 ML UDC PO ONE (05:52)
[2023-05-06] MEDS: DEXAMETHASONE 10 MG/ML VIAL IVP STA (06:08)
--- NOTE | 2023-05-06 07:09 | CT Report ---
PROCEDURE: Head WO INDICATIONS: fall head injury expressive aphasia xaralto TECHNIQUE: Noncontrast 4.5 mm thick angled axial sections acquired from the foramen magnum to the vertex. For r adiation dose reduction, the following was used: automated exposure control, adjustment of mA and/or kV according to patient size. COMPARISON: None. FINDINGS: Image quality: Excellent. CSF spaces: Basal cisterns are patent. No extra-axial fluid collections. Ventricles are normal in size and shape. Brain: No midline shift. No intracranial masses or hemorrhage. Matta-white matter interface is norm al. 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 Old focal rig ht para midline pontine lacunar infarct. Age-related volume loss and small vessel ischemic change. Skull and face: Calvarium and visualized facial bones are intact, without suspicious lesions. Sinuses: Bilateral ethmoid mucosal thickening is consistent with chronic sinus disease. IMPRESSION: 1. No acute intracranial process. 2. Old infarcts, involutional changes. Findings are concordant with preliminary interpretation provided by [facility]. Reviewed by: Patrick Harden MD on 05/06/2023 7:07 AM PST Approved by: Patrick Harden MD on 05/06/2023 7:07 AM PST Station ID: [id number]
--- NOTE | 2023-05-06 07:10 | CT Report ---
PROCEDURE: Cervical Spine WO INDICATIONS: fall head injury TECHNIQUE: Noncontrast 3 mm thick sections acquired from the skull base to the T4 level. Sagittal and coronal r eformats were then constructed. For radiation dose reduction, the following was used: automated exp osure control, adjustment of mA and/or kV according to patient size. COMPARISON: None. FINDINGS: Image quality: Excellent. Bones: No fractures or dislocations. Visualized superior ribs are intact. Severe cervical spondylo sis. Interbody fusion at C3-C4. Severe disc height loss at C5-C6. Trace anterolisthesis of C3 on C4, mild anterolisthesis of C4 on C5, mild retrolisthesis of C5 on C6. Multilevel bony foraminal narrowin g. Multilevel facet arthropathy. Soft tissues: Prevertebral soft tissues are normal in thickness. No paravertebral hematomas. No ap ical pneumothoraces. IMPRESSION: 1. No acute cervical fracture or dislocation. 2. Cervical spondylosis. Findings are concordant with preliminary interpretation provided by [facility]. Reviewed by: Patrick Harden MD on 05/06/2023 7:09 AM PST Approved by: Patrick Harden MD on 05/06/2023 7:09 AM PST Station ID: [id number]
--- NOTE | 2023-05-06 07:59 | XRAY Report ---
PROCEDURE: Chest 1V INDICATIONS: chest pain TECHNIQUE: One view of the chest was acquired. COMPARISON: Prior radiographs were not available for review. FINDINGS: Surgical changes and devices: None. Lungs and pleura: Diffuse interstitial prominence. Mild basilar congestion. Patchy bibasilar opaciti es more pronounced on the right. No substantial pleural effusion. No pneumothorax. Mediastinum: Mediastinal contours appear normal. Heart size is enlarged. Bones and chest wall: No suspicious bony lesions. Overlying soft tissues appear unremarkable. IMPRESSION: Cardiomegaly with findings suggestive of mild pulmonary edema/CHF. Patchy bibasilar opacities likely representing atelectasis. Early airspace disease not excluded if clinically appropriate. No significant discrepancy with initial interpretation by overnight radiologist. Reviewed by: Vince Berry MD on 05/06/2023 7:57 AM PST Approved by: Vince Berry MD on 05/06/2023 7:57 AM RUST Station ID: [id number]
== END 2023-05-06 06:49 | disposition home or self-care (01) ==
LOC: EDUNIT# → ED 03:10
DX: U07.1 COVID-19 (principal); J18.9 Pneumonia, unspecified organism; S09.90XA Unspecified injury of head, initial encounter; W18.39XA Other fall on same level, initial encounter; Y92.009 Unspecified place in unspecified non-institutional (private) residence as the place of occurrence of the external cause; I48.91 Unspecified atrial fibrillation; Z79.01 Long term (current) use of anticoagulants; E78.00 Pure hypercholesterolemia, unspecified; I11.0 Hypertensive heart disease with heart failure; I50.9 Heart failure, unspecified; Z79.899 Other long term (current) drug therapy
CPT/HCPCS: 36415; 70450; 71045; 72125; 80053; 81001; 83690; 83880; 85025; 85610; 85730; 87633; 93005; 96365; 96375; 99284; A9270; 81003; 87086

== ENCOUNTER 2023-05-23 08:01 | Emergency (ER) | payer MEDICARE, MEDICAID ==
[2023-05-23 08:36] VITALS: BP 101/65; O2SAT 98
== END 2023-05-23 10:44 | disposition left against medical advice (07) ==
LOC: ED 08:01
DX: Z53.21 Procedure and treatment not carried out due to patient leaving prior to being seen by health care provider (principal)